=== PATIENT | male | born 1950 | race Caucasian/White ===

== ENCOUNTER 2023-10-19 09:57 | Emergency (ER) | payer MEDICARE, SELFPAY ==
[2023-10-19 10:10] VITALS: BP 168/83; PULSE 100; RESP 20; TEMP 36.9; O2SAT 97; BMI 28.0
--- NOTE | 2023-10-19 10:42 | EXP.UTC ---
Discharge Plan Disposition Patient Disposition: Home, Self-Care Condition: Good Prescriptions Prescriptions: New methylprednisolone [Medrol (Jose Carlos)] 4 mg tablets,dose pack See Rx Instructions .Route .COMPLEX 6 Days Qty: 21 0RF Rx Instructions: taper pack; No Action aspirin 81 mg Tablet,Chewable 81 mg PO DAILY lisinopril 40 mg tablet 40 mg PO DAILY Patient Comments: TAKE 1 TABLET BY MOUTH DAILY Referrals Follow up/Referrals: Roland Conley [Primary Care Provider] - See instructions Activity Restrictions/Add. Instructions Additional Instructions/Restrictions: Over the counter benadryl may help with itching Oatmeal bathes may help with itching and drying of rash Start Medrol pack today Follow up with your Family Doctor if no improvement or any worsening of symptoms Clinical Impressions Clinical Impression: Rash and nonspecific skin eruption Instructions Patient Instructions: DI for Rash, Methylprednisolone Discharge ED Provider: Sierra Blanchard [facility] General Stated complaint: rash on arms and back Mode of Arrival: Ambulatory Source of Information: Patient Limitations: No Limitations Time Seen by Provider: 10/19/23 10:42 Description of Symptoms (Recalled from Triage Doc. by RN): PATIENT C/O RASH TO BILATERAL ARMS AND BACK. HE STATES THE RASH STARTED 2 DAYS AGO BUT GOT WORSE LAST NIGHT. PATIENT DENIES ITCHING OR PAIN. PATIENT REPORTS SPRAYING WEED KILLER APPROX 5 DAYS AGO HEENT Symptoms (Recalled from RN notes): No Resp Symptoms (Recalled from RN notes): No Skin Symptoms (Recalled from RN notes): Yes MS Symptoms (Recalled from RN notes): No Functional Status (Recalled from RN notes): WNL History of Present Illness Provider Complaint: Patient states that he noticed on Friday he started breaking out in rash on his arms and back States that he did recently spray some weed killer and the rash has continued to spread over the last couple of days Related Data Home Medications Medication Instructions Recorded Confirmed aspirin 81 mg chewable tablet 81 mg PO DAILY 10/19/23 10/19/23 lisinopril 40 mg tablet 40 mg PO DAILY 10/19/23 10/19/23 Previous Rx's Medication Instructions Recorded methylprednisolone 4 mg tablets in See Rx Instructions .Route 10/19/23 a dose pack (Medrol (Jose Carlos)) .COMPLEX 6 days #21 tabs Allergies Allergy/AdvReac Type Severity Reaction Status Date / Time No Known Allergies Allergy Verified 10/19/23 10:25 Worker's Comp Is this a Worker's Comp case?: No [facility] Disclaimer: The information contained in this section may have been updated after the patient was seen, as this information can be updated by other users. Medical History (Updated 10/19/23 @ 10:48 by Sierra Blanchard APRN) COPD (chronic obstructive pulmonary disease) History of heart attack Hypertension Social History Smoking Status: Unknown if ever smoked alcohol intake: never current occupational status: retired Travel in the last 8 weeks: None ROS Obtained: Yes All systems reviewed & no additional complaints except as documented and Yes Systems reviewed as appropriate & no additional complaints except as documented Constitutional Constitutional: Reports system reviewed and no additional complaints, except as documented and Reports as per HPI ENT Ears, Nose, Mouth, and Throat: Reports system reviewed and no additional complaints, except as documented and Reports as per HPI Cardiovascular Cardiovascular: Reports system reviewed and no additional complaints, except as documented and Reports as per HPI Respiratory Respiratory: Reports system reviewed and no additional complaints, except as documented and Reports as per HPI Integumentary/Breasts Skin/Breast: Reports system reviewed and no additional complaints, except as documented, Reports as per HPI and Reports rash Physical Exam General General appearance: alert and in no apparent distress ENT ENT exam: Present mucous membranes moist Respiratory Respiratory exam: Present normal lung sounds bilaterally; Absent respiratory distress or wheezes Cardiovascular Cardiovascular exam: Present regular rate, normal rhythm and normal heart sounds Neurological Exam Neurological exam: Present alert, oriented X3 and normal gait Skin Skin exam: Present rash (red raised rash noted on bilateral arms, a few areas on chest and on his back) Medical Decision Making Rc Inquiry Pt receiving controlled substance: No Rc was queried for this patient: No Vital Signs: 10/19/23 10:10 Temperature 98.5 F Temperature Source Oral Pulse Rate [Left Brachial] 100 H Respiratory Rate 20 Blood Pressure [Left Arm] 168/83 H Blood Pressure Mean [Left Arm] 111 Blood Pressure Source [Left Arm] Automatic Cuff Blood Pressure Position [Left Arm] Sitting 02 Sat by Pulse Oximetry 97 Oxygen Delivery Method Room Air Medical Decision Narrative: Patient initially denied itching with rash however ale observed scratching arms and went brought to his attention he advised he didnt realize he was doing that
[2023-10-19 10:50] VITALS: BP 168/83; PULSE 100; RESP 20; TEMP 36.9; O2SAT 97
== END 2023-10-19 10:59 | disposition home or self-care (01) ==
PROVIDERS: Emergency Provider Nurse Practitioner; PCP Family Medicine
DX: T60.3X1A Toxic effect of herbicides and fungicides, accidental (unintentional), initial encounter (principal); R21 Rash and other nonspecific skin eruption; J44.9 Chronic obstructive pulmonary disease, unspecified; I10 Essential (primary) hypertension; I25.2 Old myocardial infarction
CPT/HCPCS: 99204; 99212; G0463

== ENCOUNTER 2023-12-31 10:10 | Outpatient (CLI) | payer MEDICARE, SELFPAY ==
--- NOTE | 2023-12-31 | CA_ITS ---
APPROVED REPORT Exam: Pharmacologic Technologist: Kate Nunez, Ht: 6 ft 0 in Wt: 204 lbs BSA: 2.15 m2 HR: 51 bpm BP: 145/77 mmHg Rhythm: Sinus bradycardia Medical History Medications: Aspirin,,,,, XaRELTO,,,,, BisOPROLOL Fumarate,,,,, Furosemide,,,,, Cardiac Risk Factors: HTN Stress Test Details Test: LEXISCAN HR Resting HR: 49 bpm Max Heart Rate (APMHR): 147 bpm Max HR Achieved: 61 bpm Target HR (85% APMHR): 125 bpm % of APMHR: 42 Recovery HR: 54 bpm BP Resting BP: 145.0/77.0 mmHg Max BP: 145.0/77.0 mmHg Recovery BP: 143.0/58.0 mmHg ECG Resting ECG: sinus bradycardia Stress ECG: No significant ST changes Arrhythmia: PACs, PVCs Clinical Exercise duration: 06:35 min Highest Stage Achieved: Stress ECG Conclusion During lexiscan pt experinced SOA and head discomfort. No CP noted. Occasional PAC, PVC. No significant ST changes. Conclusion: Unremarkable lexiscan stress. Myoview images reported separately. Test Summary REST . . . . . . . Sitting REST 03:33 . . 49 . 145/ 77 . . Stage 1 01:00 . . 53 . . . . Stage 2 01:00 . . 57 . . . . Stage 3 01:00 . . 55 . 130/ 62 . . Stage 4 01:00 . . 54 . 137/ 63 . . Stage 4 02:00 . . 56 . 137/ 63 . . Stage 4 03:00 . . 53 . 143/ 58 . . Stage 4 03:35 . . 51 . 143/ 58 . Stop exercise at 06:35 RECOVERY 01:00 . . 55 . . . . RECOVERY 01:40 . . 56 . 136/ 53 . . Electronically signed by : Yadira Davis MD 01/01/2024 12:32:50
--- NOTE | 2023-12-31 10:15 | CA_ITS ---
APPROVED REPORT EXAM: Comprehensive 2D, Doppler, and color-flow Echocardiogram [employer]man: Sharee Valadez RVT Ht: 6 ft 0 in Wt: 204lbs BSA: 2.15 BP: 116/59 mmHg Indications: CP,SOA,EX SMOKER,COPD 2D Dimensions IVSd 1.09 cm M: 0.6-1.2 LVEF (Visual) 54.80 % PWd 0.91 cm M: 0.6 - 1.2 LA Volume 79.30 mL LVDd 5.14 cm M: 4.2 - 5.9 LA Volume Index 36.88 mL/m2 (M/F) 16-34 LVDs 3.67 cm M: 2.5 - 4.0 M-Mode Dimensions RVDd 2.80 cm (0.9-2.6) LA Diam 4.79 cm (1.9-4.0) LVDd 5.47 cm (3.5-5.7) LVDs 4.03 cm (3.5-5.7) IVSd 0.85 cm (0.6-1.1) PWd 0.68 cm (0.6-1.1) EF (Teich) 51.00% FS 26.30% EDV (Teich) 145.60 mL TAPSE 1.61 (<1.7) ESV (Teich) 71.30 mL LV Diastology E Decel Time 150 (160-240 msec) E/A Ratio 1.7 Aortic Valve AIYANA Index 1.11 cm2/m2 AoV Peak Prakash. 126.0 (50-130 cm/s) AO Peak GR. 6.30 mmHg AO Mean GR. 3.50 (<5 mmHg) AO VTI 29.4 (18-25 cm) AYIANA (VTI) 2.45 (2.5-4.5 cm2) Mitral Valve MV E Max Prakash. 92.0 (40-130 cm/s) MV A Velocity 54.0 (40-130 cm/s) E/A Ratio 1.70 MV PHT 44.0 ms Pulmonary Valve PV Peak Velocity 66.0 (50-150 cm/s) Tricuspid Valve TR P. Velocity 301.00 cm/s RAP Estimate 10.00 mmHg RVSP 46.20 mmHg Left Ventricle The left ventricle is normal size. The left ventricular systolic function is mildly hypokinetic. There is normal left ventricular wall thickness. There is moderate hypokinesis of the inferior and inferoseptal LV henderson. Grade 1 diastolic dysfunction is present. LVEF is 45%. Right Ventricle Right ventricle is mildly dilated. The right ventricular systolic function is normal. Atria The left atrium size is normal. The right atrium size is normal. There is no Doppler evidence of interatrial shunt. Aortic Valve The aortic valve is mildly thickened. There is no aortic valvular stenosis. Trace aortic regurgitation. Mitral Valve The mitral valve leaflets are mildly thickened. No evidence of mitral valve stenosis. Mild mitral regurgitation. Tricuspid Valve The tricuspid valve leaflets are thin and pliable. Mild tricuspid regurgitation. RVSP is 25-30 mmHg. Pulmonic Valve The pulmonary valve is normal in structure. Trace pulmonic regurgitation. Great Vessels The aortic root is normal in size. The ascending aorta is not well-visualized. IVC is normal in size and collapses >50% with inspiration. Pericardium There is no pericardial effusion. Other Information Study Quality: Fair Conclusion Mildly reduced LV systolic function (LVEF 45%). Moderate hypokinesis of the inferior and inferoseptal LV henderson. Mild RV dilation. Mild MR, mild TR. Electronically signed by : Yadira Davis MD 01/04/2024 16:50:41
--- NOTE | 2023-12-31 10:15 | US_ITS ---
FINAL REPORT CLINICAL HISTORY: CAD, >50year smoker, Claudication COMPARISON: None FINDINGS: LOWER EXTREMITY SEGMENTAL PRESSURE MEASUREMENTS FINDINGS: Pressure indices are as follows: RIGHT LOWER EXTREMITY: Thigh: 1.07 Calf: 1.09 Ankle, posterior tibial artery: 1.00 Ankle, dorsalis pedis: 1.14 Toe: 0.63 HANNA: 1.14 Comments: Normal LEFT LOWER EXTREMITY: Thigh: 0.64 Calf: 0.57 Ankle, posterior tibial artery: 0.54 Ankle, dorsalis pedis: 0.59 Toe: 0.44 HANNA: 0.59 Comments: Diffusely diminished pressure indices IMPRESSION: No evidence of PVD on the right. Diffusely diminished pressure indices on the left suggesting iliac or common femoral disease. Consider CTA. Reviewed, Interpreted and Dictated by Vidhya Marcano MD Transcribed by Jackelin Dorsey Authenticated and . [facility]
--- NOTE | 2023-12-31 11:24 | NM_ITS ---
APPROVED REPORT Exam: Nuclear Stress Test Indication: SOB, Fatigue, HTN, Tobacco use, Family history, CAD, Hx of [place] Patient Location: Outpatient Stress Tech: Kate DEL ANGEL Tech:Natalie Sands, ARRT, RT (R)(N) Ht: 6 ft 0 in Wt: 204 lbs HR: 49 bpm BP: 145/77 mmHg BSA: 2.15 m2 Rhythm: NSR TID: 1.07 History: SOB, Fatigue, HTN, Tobacco use, Family history, CAD, Hx of [place] Procedure: Patient received 0.4 mg of intravenous Lexiscan, resting heart rate 49 bpm, resting blood pressure 145/77 mmHg, with Lexiscan maximum heart rate achieved was 61 bpm which is % of the maximum predicted heart rate and blood pressure was 145/77 mmHg. With Lexiscan, patient denied any complaint of chest pain. Cardiac Stress and Resting SPECT Images: Cardiac Stress and Resting SPECT images were obtained using technetium 99m Myoview 31.4 mCi stress and 10.98 mCi at rest. Resting and stress imaging in supine and prone positions demonstrate a large sized, moderate, fixed perfusion defect in the inferior LV wall. Gated imaging demonstrates mild reduction in global LV systolic function. There is moderate hypokinesis of the basal inferior LV wall. LVEF is calculated at 49%. Conclusion: Large sized, moderate, fixed perfusion defect in the inferior LV wall. Gated imaging demonstrates mild reduction in global LV systolic function. There is moderate hypokinesis of the basal inferior LV wall. LVEF is calculated at 49%. The LVEF may be inaccurate in the setting of frequent ectopy during image acquisition. Correlation with recent or new TTE is recommended. Electronically signed by : Yadira Davis MD 01/01/2024 12:34:26
[2023-12-31] MEDS: REGADENOSON 0.4MG/5ML SYRINGE 0.4 MG IV (13:25)
[2023-12-31] MEDS: SODIUM CHLORIDE 0.9% 10ML SYR (RAD ONLY) 10 ML IV ×2 (13:26)
[2023-12-31] MEDS: ISOTOPE MYOVIEW (PER STUDY) 1 DOSE IV (13:26)
== END 2023-12-31 23:59 | disposition home or self-care (01) ==
LOC: RT 10:11
PROVIDERS: PCP Family Medicine; Visit Provider Internal Medicine
DX: I25.10 Atherosclerotic heart disease of native coronary artery without angina pectoris (principal); I11.9 Hypertensive heart disease without heart failure; I73.9 Peripheral vascular disease, unspecified; R06.00 Dyspnea, unspecified; I48.0 Paroxysmal atrial fibrillation; R00.1 Bradycardia, unspecified; Z95.5 Presence of coronary angioplasty implant and graft
CPT/HCPCS: 78452; 93017; 93018; 93306; 93923; A9502; J2785

== ENCOUNTER 2024-01-03 10:28 | Outpatient (CLI) | payer MEDICARE, SELFPAY ==
[2024-01-03 10:59] LABS: Basophils % 0.6 % (0.1-2.0); Eosinophils # 0.2 K/mm3 (0.0-0.4); Lymphocytes # 0.9 K/mm3 (0.7-4.5); Lymphocytes % 16.8 % (10-50); Mean Corpuscular HGB Conc 32.4 g/dL (31.8-35.4); Mean Corpuscular Hemoglobin 30.7 pg (27.0-31.2); Mean Corpuscular Volume 94.6 fl (80-94); Monocytes # 0.4 K/mm3 (0.1-1.0); Monocytes % 7.1 % (1.7-9.3); Neutrophils # 3.7 K/mm3 (1.8-7.8); Neutrophils % 71.5 % (37.0-80.0); Platelet Count 171 K/mm3 (142-424); Red Blood Count 4.23 M/mm3 (4.60-6.20); Red Cell Distribution Width 14.8 % (11.5-17.5); White Blood Count 5.2 K/mm3 (4.8-10.8)
[2024-01-05 12:24] LABS: Antiparietal Cell Antibody 2.3 Units (0.0-20.0)
[2024-01-05 13:14] LABS: Anti-Centromere B Antibodies <0.2 AI (0.0-0.9); Anti-DNA (DS) Ab Qn 1 IU/mL (0-9); Anti-Jo-1 <0.2 AI (0.0-0.9); Anti-Smith Antibody <0.2 AI (0.0-0.9); Antichromatin Antibodies <0.2 AI (0.0-0.9); Antiscleroderma-70 Antibodies <0.2 AI (0.0-0.9); RNP Antibodies <0.2 AI (0.0-0.9); Sjogren's Anti-SS-A 6.8 AI (0.0-0.9); Sjogren's Anti-SS-B 0.2 AI (0.0-0.9)
[2024-01-06 05:09] LABS: G6PD, Quantitative 252 (127-427); RBC, G6PD 4.22 x10E6/uL (4.14-5.80)
== END 2024-01-03 23:59 | disposition home or self-care (01) ==
PROVIDERS: PCP Family Medicine; Visit Provider Dermatology
DX: R21 Rash and other nonspecific skin eruption (principal)
CPT/HCPCS: 36415; 82955; 83516; 85025; 86225; 86235

== ENCOUNTER 2024-04-09 08:23 | Day surgery (SDC) | payer MEDICARE, SELFPAY ==
[2024-04-09] VITALS (12 sets, daily range): BP systolic 131–157; BP diastolic 71–98; PULSE 51–76; RESP 14–18; TEMP 36.6; O2SAT 94–100; BMI 27.6
--- NOTE | 2024-04-09 07:06 | IR_ITS ---
APPROVED REPORT Patient Location: Outpatient PROCEDURES Left heart catheterization Left ventriculogram Selective coronary angiogram INDICATION Angina pectoris, Coronary artery disease Informed consent was obtained prior to the procedure. COMPLICATIONS none Estimated Blood Loss: less than 10ml TECHNIQUE One percent lidocaine used to anesthetize the right anterior aspect of the wrist. The right radial artery was accessed via the Seldinger technique. A 6 English sheath was placed in the right radial artery. 2.5 mg of Verapamil, 800 mcg of nitroglycerin, 1mg Lidocaine and 5000 U Heparin were given through the arterial sheath. The papa catheter was also used to perform left heart catheterization, left ventriculogram and selective coronary angiogram. At the end of the procedure the sheath was removed good hemostasis was achieved using Traclet band, patient was transferred to the postop holding area in stable condition. ANGIOGRAPHIC RESULTS The left main artery Has a distal concentric 40 to 50% stenosis The left anterior descending artery Is proximal 60 and 70% stenoses. There is a large first diagonal artery which is equal in size to the LAD which has a proximal and mid vessel 70 and 80% stenosis The circumflex artery Is large and has a proximal calcified 50 and then 70% stenosis The right coronary artery Is dominant and has a mid vessel 50 and 60% stenosis and gives rise to a large posterior descending artery which has a proximal concentric 80 to 90% stenosis The CUELLAR ventriculogram reveals Normal 60% The left ventricular end-diastolic pressure 15 mmHg IMPRESSION Severe 4 vessel coronary artery disease as described above Normal ejection fraction Borderline LVEDP PLAN 1. Patient should be evaluated for coronary bypass surgery 2. Start high intensity statin 3. Standard therapy for ischemic heart disease 4. Continue aspirin 81 mg daily 5. Patient will be referred to [facility] Electronically signed by : Tyler Argueta MD 04/09/2024 14:59:39
--- NOTE | 2024-04-09 09:00 | SUR.PHASEII ---
stated she is not staying that to call her with results of procedure and d/c time
[2024-04-09 09:17] LABS: Basophils % 0.7 % (0.1-2.0); Eosinophils # 0.2 K/mm3 (0.0-0.4); Eosinophils % 3.4 % (0.1-12.0); Hematocrit 46.1 % (42.0-52.0); Hemoglobin 14.5 g/dL (14.1-18.0); Lymphocytes # 0.9 K/mm3 (0.7-4.5); Mean Corpuscular HGB Conc 31.6 g/dL (31.8-35.4); Mean Corpuscular Volume 95.1 fl (80-94); Mean Platelet Volume 8.5 fl (7.4-10.4); Monocytes # 0.4 K/mm3 (0.1-1.0); Neutrophils # 4.8 K/mm3 (1.8-7.8); Platelet Count 165 K/mm3 (142-424); Red Blood Count 4.85 M/mm3 (4.60-6.20); Red Cell Distribution Width 14.7 % (11.5-17.5); White Blood Count 6.3 K/mm3 (4.8-10.8)
[2024-04-09 09:35] LABS: Anion Gap 6.5 mEq/L (5-15); Blood Urea Nitrogen 17 mg/dl (9-20); Calcium 9.1 mg/dl (8.4-10.2); Carbon Dioxide 31 mmol/L (22.0-30.0); Chloride 104 mmol/L (98-107); Creatinine Clearance Estimated 77 mL/min (50-200); Estimated Glomerular Filt Rate 65 ml/min (>60); GFR (African American) 79 ML/MIN (>60); Glucose 97 mg/dl (74-100); Potassium 4.5 mmoL/L (3.5-5.1); Sodium 137 mmol/L (136-145)
[2024-04-09] MEDS: diphenhydrAMINE 50MG/ML VIAL 50 MG IV (10:49)
[2024-04-09] MEDS: LIDOCAINE 1% 10ML MDV 20 ML IJ (10:49)
[2024-04-09] MEDS: MIDAZOLAM HCL 1MG/1ML 5ML VIAL 1 MG IV (10:50)
[2024-04-09] MEDS: FENTANYL 100MCG/2ML VIAL 50 MCG IV (10:50)
[2024-04-09] MEDS: HEPARIN 1,000 UNITS/ML 10ML VIAL (CATH LAB) 10000 UNIT IV (10:50)
[2024-04-09] MEDS: NITROGLYCERIN 800MCG/8ML SYR (CATH LAB) 800 MCG IA (10:51)
[2024-04-09] MEDS: 0.9 % SODIUM CHLORIDE 500 ML 25 ML IV (10:51)
[2024-04-09] MEDS: HEPARIN 1,000 UNITS/500ML NS (CATH LAB) 3000 UNIT IV (10:51)
--- NOTE | 2024-04-09 11:45 | SUR.PHASEII ---
Called pt to notify her of results and that her will be referred to dr romo for CABG
--- NOTE | 2024-04-09 11:50 | SUR.PHASEII ---
Faxed referral information to Dr blas office, fax received
[2024-04-09] MEDS: IOPAMIDOL-370 (76%);100ML BOTTLE 70 ML IV (15:17)
== END 2024-04-09 14:40 | disposition home or self-care (01) ==
PROVIDERS: PCP Family Medicine; Visit Provider Internal Medicine
DX: R93.1 Abnormal findings on diagnostic imaging of heart and coronary circulation; R06.09 Other forms of dyspnea; I25.118 Atherosclerotic heart disease of native coronary artery with other forms of angina pectoris; Z79.899 Other long term (current) drug therapy
CPT/HCPCS: 80048; 85025; 93458; 99152; 99153; C1725; C1769; J1200; J1644; J2250; J3010; Q9967

== ENCOUNTER 2024-07-21 14:43 | Outpatient (CLI) | payer MEDICARE, SELFPAY ==
[2024-07-21 15:29] LABS: Basophils # 0.1 K/mm3 (0-0.2); Basophils % 0.9 % (0.1-2.0); Eosinophils # 0.2 K/mm3 (0.0-0.4); Hematocrit 39.9 % (42.0-52.0); Hemoglobin 13.1 g/dL (14.1-18.0); Lymphocytes # 0.9 K/mm3 (0.7-4.5); Lymphocytes % 15.1 % (10-50); Mean Corpuscular HGB Conc 32.8 g/dL (31.8-35.4); Mean Corpuscular Hemoglobin 28.4 pg (27.0-31.2); Mean Corpuscular Volume 86.4 fl (80-94); Mean Platelet Volume 11.2 fl (7.4-10.4); Monocytes # 0.6 K/mm3 (0.1-1.0); Monocytes % 9.9 % (1.7-9.3); Neutrophils % 69.8 % (37.0-80.0); Platelet Count 184 K/mm3 (142-424); Red Blood Count 4.62 M/mm3 (4.60-6.20); Red Cell Distribution Width 15.2 % (11.5-17.5); White Blood Count 5.8 K/mm3 (4.8-10.8)
[2024-07-21 15:43] LABS: Chloride 102 mmol/L (98-107); Potassium 4.5 mmoL/L (3.5-5.1); Sodium 137 mmol/L (136-145)
[2024-07-21 15:45] LABS: Bilirubin,Unconjugated 0.4 mg/dL (0.0-1.1); Blood Urea Nitrogen 11 mg/dl (9-20); Estimated Glomerular Filt Rate 94 ml/min (>60); GFR (African American) 114 ML/MIN (>60)
[2024-07-21 15:46] LABS: Alanine Aminotransferase 22 U/L (12-78); Alkaline Phosphatase 102 U/L (38-126); Anion Gap 10.5 mEq/L (5-15); Aspartate Amino Transferase 30 U/L (17-59); Bilirubin,Indirect 0.5 mg/dL (0.0-0.9); Bilirubin,Total 0.5 mg/dl (0.2-1.3); Calcium 9.2 mg/dl (8.4-10.2); Carbon Dioxide 29 mmol/L (22.0-30.0); Chol/HDL Ratio 2.6 (1-3.5); Cholesterol 100 mg/dl (140-200); Glucose 84 mg/dl (74-100); HDL Cholesterol 39 mg/dl (40-60); Magnesium 1.9 mg/dl (1.6-2.3); Triglycerides 74 mg/dl (30-150); VLDL Cholesterol 15 mg/dL (0-40)
[2024-07-21 15:57] LABS: Direct LDL Cholesterol 44.72 mg/dL (100-129)
[2024-07-21 16:01] LABS: Free T4 (Free Thyroxine) 1.18 ng/dl (0.78-2.19)
[2024-07-21 16:17] LABS: Thyroid Stimulating Hormone 0.94 uIU/mL (0.465-4.68)
== END 2024-07-21 23:59 | disposition home or self-care (01) ==
LOC: LAB 14:44
PROVIDERS: PCP Family Medicine; Visit Provider Internal Medicine
DX: Z95.1 Presence of aortocoronary bypass graft (principal); I50.20 Unspecified systolic (congestive) heart failure; I48.0 Paroxysmal atrial fibrillation; I10 Essential (primary) hypertension; E78.2 Mixed hyperlipidemia; Z72.0 Tobacco use; I25.10 Atherosclerotic heart disease of native coronary artery without angina pectoris
CPT/HCPCS: 36415; 80048; 80061; 80076; 83735; 84439; 84443; 85025

== ENCOUNTER 2024-07-28 12:33 | Outpatient (CLI) | payer MEDICARE, SELFPAY ==
--- NOTE | 2024-07-28 12:39 | CA_ITS ---
APPROVED REPORT EXAM: Comprehensive 2D, Doppler, and color-flow Echocardiogram Presser First: Sharee Valadez RVT Ht: 6 ft 0 in Wt: 204lbs BSA: 2.15 BP: 184/73 mmHg Indications: CHF,CAD,CABG,COPD,HTN,HLD,CP,A-FIB,EF OF 45% ON 12/31/23 2D Dimensions LA Volume 63.70 mL LA Volume Index 29.63 mL/m2 (M/F) 16-34 M-Mode Dimensions RVDd 2.46 cm (0.9-2.6) LA Diam 4.80 cm (1.9-4.0) LVDd 5.22 cm (3.5-5.7) LVDs 4.11 cm (3.5-5.7) IVSd 1.03 cm (0.6-1.1) PWd 0.49 cm (0.6-1.1) EF (Teich) 42.80% FS 21.30% EDV (Teich) 130.70 mL TAPSE 1.28 (<1.7) ESV (Teich) 74.70 mL LV Diastology E Decel Time 150 (160-240 msec) E/A Ratio 3.6 Aortic Valve AIYANA Index 1.02 cm2/m2 AoV Peak Prakash. 126.0 (50-130 cm/s) AO Peak GR. 6.30 mmHg AO Mean GR. 3.70 (<5 mmHg) AO VTI 23.8 (18-25 cm) AIYANA (VTI) 2.24 (2.5-4.5 cm2) Mitral Valve MV E Max Prakash. 86.0 (40-130 cm/s) MV A Velocity 24.0 (40-130 cm/s) E/A Ratio 3.57 MV PHT 44.0 ms Pulmonary Valve PV Peak Velocity 63.0 (50-150 cm/s) Tricuspid Valve TR P. Velocity 115.00 cm/s RAP Estimate 10.00 mmHg RVSP 15.30 mmHg Left Ventricle The left ventricle is normal size. The left ventricular systolic function is low normal. There is increased LV wall thickness. There is borderline global hypokinesis present. Diastolic function is normal. LVEF is 50%. Right Ventricle The right ventricle is mildly dilated. The right ventricular systolic function is normal. Atria The left atrium size is normal. The right atrium size is normal. There is no Doppler evidence of interatrial shunt. Aortic Valve The aortic valve is mildly thickened. There is no aortic valvular stenosis. Trace aortic regurgitation. Mitral Valve The mitral valve is normal in structure. No evidence of mitral valve stenosis. Mild mitral regurgitation. Tricuspid Valve Tricuspid valve is grossly normal in structure and function. Trace tricuspid regurgitation. There is insufficient TR jet to estimate RVSP. Pulmonic Valve The pulmonary valve is normal in structure. Trace pulmonic regurgitation. Great Vessels The aortic root is normal in size. The ascending aorta is not well-visualized. IVC is normal in size and collapses >50% with inspiration. Pericardium There is no pericardial effusion. Conclusion Low normal LV systolic function (LVEF 50%). Mild MR. Compared to prior study from 12/31/2023, the LVEF is slightly improved (from 45% to 50%) and is now in the low-normal range. Electronically signed by : Yadira Davis MD 08/05/2024 23:45:15
== END 2024-07-28 23:59 | disposition home or self-care (01) ==
LOC: RT 12:34
PROVIDERS: PCP Family Medicine; Visit Provider Internal Medicine
DX: I34.0 Nonrheumatic mitral (valve) insufficiency (principal); I50.20 Unspecified systolic (congestive) heart failure; Z95.1 Presence of aortocoronary bypass graft
CPT/HCPCS: 93306

== ENCOUNTER 2024-09-27 12:23 | Outpatient (CLI) | payer MEDICARE, SELFPAY ==
--- NOTE | 2024-09-27 12:27 | CT_ITS ---
FINAL REPORT TECHNIQUE: Post contrast axial imaging of the aorta and bilateral lower extremity was obtained and reviewed.This study was performed with techniques to keep radiation doses as low as reasonably achievable (ALARA). Individualized dose reduction techniques using automated exposure control or adjustment of mA and/or kV according to the patient''s size were employed. CLINICAL HISTORY: SEE BILATERAL LOWER EXTREMITIES. BILATERAL LEG AND FEET NUMBNESS. HEART BYPASS [id number] AGO. COMPARISON: None FINDINGS: There is no evidence of abdominal aortic aneurysm or dissection. There are aortic calcifications. The mesenteric vessels are patent. There is calcification at the origin of the inferior mesenteric artery. Stenosis is not excluded. There is calcification at the origin of the renal arteries bilaterally. There is likely at least moderate stenosis bilaterally. There is mild stenosis of the bilateral common iliac arteries. The bilateral internal and external iliac arteries are patent without significant stenosis. Right: The right common femoral artery is patent. There is atherosclerotic disease causing mild stenosis. The right superficial femoral artery and profunda are patent. There are areas of mild to moderate stenosis of the right superficial femoral artery without occlusion. There is prominent calcification of the right popliteal artery. There is a three-vessel runoff to the calf. Flow is not well-demonstrated in the distal calf. No convincing flow is seen at the ankle. The right common femoral artery, deep femoral artery and superficial femoral artery are all patent, without stenosis. There is no stenosis of the popliteal artery. The anterior and posterior tibial and peroneal arteries are patent to the lower leg. The anterior and posterior tibial arteries are patent to the foot. Left: There is atherosclerotic disease of the left common femoral artery with mild stenosis. The proximal superficial femoral artery and profunda are patent. There is atherosclerotic disease throughout the course of the superficial femoral artery. The distal left superficial femoral artery is occluded at the adductor hiatus. This reconstitutes posterior to the knee. There is a three-vessel runoff in the proximal most aspect of the calf. The peroneal and anterior tibial arteries are not well-seen after the proximal third. The posterior tibial artery is seen only to the mid calf. Review of the remaining abdomen and pelvis demonstrates no evidence of mass or adenopathy. There is no fluid collection or acute inflammatory process. IMPRESSION: 1. No evidence of aortic aneurysm or dissection. 2. Bilateral renal artery stenosis. 3. Bilateral lower extremity atherosclerotic disease as detailed above. 4. Occlusion of the left superficial femoral artery at the level of the adductor hiatus with reconstitution posterior to the knee as above. Authenticated and ERN
[2024-09-27 12:56] LABS: Blood Urea Nitrogen 13 mg/dl (9-20); Estimated Glomerular Filt Rate 82 ml/min (>60); GFR (African American) 100 ML/MIN (>60)
[2024-09-27] MEDS: IOPAMIDOL-370 (76%);100ML BOTTLE 100 ML IV (13:28)
[2024-09-27] MEDS: 0.9 % SODIUM CHLORIDE 50 ML VIAL IV (13:28)
[2024-09-27] MEDS: SODIUM CHLORIDE 0.9% 10ML SYR (RAD ONLY) 10 ML IV (13:28)
== END 2024-09-27 23:59 | disposition home or self-care (01) ==
LOC: RAD 12:24
PROVIDERS: PCP Family Medicine; Visit Provider Internal Medicine
DX: I25.10 Atherosclerotic heart disease of native coronary artery without angina pectoris (principal); Z95.1 Presence of aortocoronary bypass graft; I50.20 Unspecified systolic (congestive) heart failure; R68.89 Other general symptoms and signs; R00.1 Bradycardia, unspecified; I73.9 Peripheral vascular disease, unspecified; I48.0 Paroxysmal atrial fibrillation; E78.2 Mixed hyperlipidemia; Z95.5 Presence of coronary angioplasty implant and graft; Z72.0 Tobacco use
CPT/HCPCS: 36415; 75635; 82565; 84520; Q9967

== ENCOUNTER 2024-10-19 12:15 | Outpatient (CLI) | payer MEDICARE, SELFPAY ==
--- NOTE | 2024-10-19 | CA_ITS ---
APPROVED REPORT Exam: Pharmacologic Technologist: Sruthi Allen Ht: 6 ft 0 in Wt: 204 lbs BSA: 2.15 m2 HR: 74 bpm BP: 137/77 mmHg Stress Test Details Test: Lexiscan HR Resting HR: 74 bpm Max Heart Rate (APMHR): 146 bpm Max HR Achieved: 75 bpm Target HR (85% APMHR): 124 bpm % of APMHR: 51 Recovery HR: 74 bpm BP Resting BP: 137.0/77.0 mmHg Max BP: 137.0/77.0 mmHg Recovery BP: 135.0/74.0 mmHg ECG Resting ECG: Atrial flutter Stress ECG Conclusion Symptoms: Dyspnea Arrhythmias/Ectopy: Atrial flutter ST-T Changes: Less than 1 mm Conclusion: EKG unremarkable due to Lexiscan infusion. Electronically signed by : Yadira Davis MD 10/19/2024 15:10:58
--- NOTE | 2024-10-19 12:30 | NM_ITS ---
APPROVED REPORT Exam: Nuclear Stress Test Indication: Chest pain, SOB, HTN, High cholesterol, Tobacco use, Family history, CAD, CABG Patient Location: Outpatient Stress Tech: Sruthi Allen [place] Tech:Natalie Sands, ARRT, RT (R)(N) Ht: 6 ft 0 in Wt: 200 lbs HR: 73 bpm BP: 137/77 mmHg BSA: 2.13 m2 TID: 1.18 History: Chest pain, SOB, HTN, High cholesterol, Tobacco use, Family history, CAD, CABG Procedure: Patient received 0.4 mg of intravenous Lexiscan, resting heart rate 73 bpm, resting blood pressure 137/77 mmHg, with Lexiscan maximum heart rate achieved was 77 bpm which is % of the maximum predicted heart rate and blood pressure was 135/74 mmHg. With Lexiscan, patient denied any complaint of chest pain. Cardiac Stress and Resting SPECT Images: Cardiac Stress and Resting SPECT images were obtained using technetium 99m Myoview 32.9 mCi stress and 10.73 mCi at rest. Resting and stress imaging in supine and prone positions demonstrate a large sized, severe, predominantly fixed perfusion defect in the inferior and inferoseptal LV henderson. There is minimal reversibility towards the distal inferior and inferoapical LV henderson. Gated imaging demonstrates severe reduction in global LV systolic function. There is akinesis of the basal to mid inferior LV henderson. LVEF is calculated at 28%. Conclusion: Large sized, severe, predominantly fixed perfusion defect in the inferior and inferoseptal LV henderson. There is minimal reversibility towards the distal inferior and inferoapical LV henderson. Findings are suggestive of partial reversible ischemia. Gated imaging demonstrates severe reduction in global LV systolic function. There is akinesis of the basal to mid inferior LV henderson. LVEF is calculated at 28%. Electronically signed by : Yadira Davis MD 10/19/2024 15:07:52
[2024-10-19] MEDS: SODIUM CHLORIDE 0.9% 10ML SYR (RAD ONLY) 10 ML IV ×2 (13:23)
[2024-10-19] MEDS: ISOTOPE MYOVIEW (PER STUDY) 1 DOSE IV (13:23)
[2024-10-19] MEDS: REGADENOSON 0.4MG/5ML SYRINGE 0.4 MG IV (13:23)
== END 2024-10-19 23:59 | disposition home or self-care (01) ==
LOC: RAD 12:15
PROVIDERS: PCP Family Medicine; Visit Provider Nurse Practitioner Family
DX: I25.119 Atherosclerotic heart disease of native coronary artery with unspecified angina pectoris (principal)
CPT/HCPCS: 78452; 93017; 93018; A9502; J2785

== ENCOUNTER 2024-10-27 08:45 | Day surgery (SDC) | payer MEDICARE, SELFPAY ==
[2024-10-27] VITALS (13 sets, daily range): BP systolic 143–168; BP diastolic 78–95; PULSE 60–78; RESP 17–19; O2SAT 93–98; BMI 27.8
--- NOTE | 2024-10-27 07:03 | IR_ITS ---
APPROVED REPORT Patient Location: Outpatient PROCEDURES Left heart catheterization Left ventriculogram Selective coronary angiogram Left internal mammary angiography Selective engagement of the saphenous vein graft to the circumflex artery Drug-eluting stent deployment to the proximal left main artery extending into the proximal circumflex artery Bilateral selective renal angiography Catheter placement in the abdominal aorta Abdominal aortography Repositioning of the catheter in the abdominal aorta Bilateral iliofemoral runoff INDICATION Coronary artery disease, Angina pectoris, History of coronary artery bypass surgery, Renal artery stenosis by CAT scan angiography, Abnormal HANNA, Peripheral artery disease, [place] claudication class III Informed consent was obtained prior to the procedure. COMPLICATIONS NONE Estimated Blood Loss: LESS THAN 10 ML TECHNIQUE One percent lidocaine used to anesthetize the right groin. The right femoral artery was accessed via the Seldinger technique and a 5 [place] sheath was placed in the right femoral artery. A JL 4, JR4 catheter were used to perform left heart catheterization, left ventriculogram selective coronary angiography as well as selective engagement of the solitary vein graft and the left internal mammary artery. The JR4 catheter was used to perform bilateral selective renal angiography. At the end of the diagnostic angiogram therapeutic heparin was administered giving a therapeutic ACT and the 5 [place] sheath was exchanged for a 6 [place] sheath. A 6 [place] JL 4 guide catheter was placed in left main artery followed by Choice PT extra-support wire placed into the LAD. A 3.5 x 22 mm Nick frontier stent was placed in the left main artery extending into the proximal LAD and deployed at 20 kelle. The 3.5 x 8 mm balloon was deployed at 26 kelle in the ostial segment of the LAD extending back into the left main artery to post dilate. ROOSEVELT-3 flow was present before and after the procedure. At the end the procedure the pigtail catheter was placed in the abdominal aorta and aortography was performed. The catheter was then repositioned and bilateral iliofemoral runoff was performed. At the end procedure the apparatus was removed the groin is reprepped closure change sheath was removed and hemostasis was achieved using Perclose device and patient was transferred to the postop putting in stable addition ANGIOGRAPHIC RESULTS The left main artery Has a distal 50% stenosis The left anterior descending artery Has an ostial concentric 60% stenosis with proximal 30% calcified stenoses. A small to medium sized first diagonal artery has proximal tandem 60% stenoses. The diagonal artery is small to medium and has proximal tandem 60% stenosis. A bypass graft is identified in the distal diagonal artery which produces scant, if any, competitive flow The circumflex artery Has an ostial 60% stenosis followed by proximal 70% concentric stenosis. Competitive flow is present from the saphenous vein graft The right coronary artery Is dominant and has stent in the proximal to mid segment which is widely patent with minimal in-stent restenosis. There is a 30% concentric distal transitioning stenosis. The posterior lateral branch has proximal 50% stenosis of the PDA has tandem 30-40 and 50% stenosis The CUELLAR ventriculogram reveals Dilated and reduced at 35% The left ventricular end-diastolic pressure 10 mmHg PETERS graft is distally occluded Saphenous vein graft to circumflex artery patent Right renal artery has an ostial 20 to 30% stenosis Left renal artery has an ostial 20% stenosis Infrarenal abdominal aorta is normal Bilateral common internal and external iliac arteries are patent Bilateral common femoral arteries are patent Bilateral profunda femoris arteries are patent Right superficial femoral artery has diffuse mild to moderate atheromatous plaque with 40% stenoses in Tyree's canal. The popliteal artery is patent and there appears to be two-vessel runoff below the knee on the right side Left superficial femoral artery has proximal 40% stenosis with 70% stenosis in Tyree's canal and then becomes occluded. It reconstitutes 4 to 5 cm distally at the popliteal level and continues with at least one-vessel runoff below the knee IMPRESSION Occluded PETERS graft as described above Successful stenting of the left main artery extending the proximal LAD severe disease reduced to 0% with 1 drug-eluting stent Left ventricular dysfunction as described above Normal left ventricular end-diastolic pressure Mild bilateral renal artery stenosis Occluded left SFA/popliteal artery at Tyree's canal which reconstitutes at the pregeniculate level PLAN 1. Dual antiplatelet therapy 2. Cardiac rehabilitation 3. Avoidance of tobacco products 4. Echocardiogram to determine if ejection fraction is 35% or less. In that case GDMT should be implemented and ejection fraction reevaluated in 90 days to determine if AICD placement is appropriate 5. Patient will be brought back to the [facility] in 2 to 3 weeks and undergo percutaneous revascularization with intravascular lithotripsy to the calcified occluded left SFA popliteal artery 6. LDL less than 55 achieved with high intensity statin Electronically signed by : Tyler Argueta MD 10/27/2024 11:04:19
[2024-10-27 09:29] LABS: Basophils % 0.6 % (0.1-2.0); Eosinophils # 0.2 Kmm3 (0.0-0.4); Eosinophils % 3.9 % (0.1-12.0); Hematocrit 38.7 % (42.0-52.0); Hemoglobin 12.9 g/dL (14.1-18.0); Lymphocytes # 0.7 K/mm3 (0.7-4.5); Lymphocytes % 14.3 % (10-50); Mean Corpuscular HGB Conc 33.3 g/dL (31.8-35.4); Mean Corpuscular Hemoglobin 29.3 pg (27.0-31.2); Mean Platelet Volume 11.2 fl (7.4-10.4); Monocytes # 0.4 K/mm3 (0.1-1.0); Monocytes % 8.3 % (1.7-9.3); Neutrophils # 3.8 K/mm3 (1.8-7.8); Neutrophils % 72.7 % (37.0-80.0); Nucleated Red Blood Cells # 0 10^3/uL; Nucleated Red Blood Cells % 0 %; Platelet Count 149 K/mm3 (142-424); Red Cell Distribution Width 14.5 % (11.5-17.5); Red Cell Distribution Width-SD 46.7 fL; White Blood Count 5.2 K/mm3 (4.8-10.8)
[2024-10-27 09:32] LABS: Anion Gap 9.9 mEq/L (5-15); Blood Urea Nitrogen 11 mg/dl (9-20); Calcium 8.7 mg/dl (8.4-10.2); Carbon Dioxide 25 mmol/L (22.0-30.0); Chloride 107 mmol/L (98-107); Creatinine Clearance Estimated 84 mL/min (50-200); Estimated Glomerular Filt Rate 94 ml/min (>60); GFR (African American) 114 ML/MIN (>60); Glucose 93 mg/dl (74-100); Potassium 3.9 mmoL/L (3.5-5.1); Sodium 138 mmol/L (136-145)
[2024-10-27] MEDS: HEPARIN 1,000 UNITS/500ML NS (CATH LAB) 3000 UNIT IV (09:58)
[2024-10-27] MEDS: LIDOCAINE 1% 10ML MDV 10 ML IJ (09:58)
[2024-10-27] MEDS: 0.9 % SODIUM CHLORIDE 500 ML 25 ML IV (09:58)
[2024-10-27] MEDS: diphenhydrAMINE 50MG/ML VIAL 50 MG IV (09:59)
[2024-10-27] MEDS: HEPARIN 1,000 UNITS/ML 10ML VIAL (CATH LAB) 5000 UNIT IV ×3 (10:21→11:05)
[2024-10-27] MEDS: FENTANYL 100MCG/2ML VIAL 50 MCG IV (10:38)
[2024-10-27] MEDS: MIDAZOLAM HCL 1MG/ML 5ML VIAL 1 MG IV (10:40)
[2024-10-27] MEDS: CLOPIDOGREL 300MG TABLET 600 MG PO (10:55)
[2024-10-27] MEDS: IOPAMIDOL-370 (76%);100ML BOTTLE 180 ML IV (12:29)
[2024-10-27] MEDS: IOHEXOL-240 100ML BOTTLE 130 ML IV (12:30)
[2024-10-27 12:36] LABS: CATHL Activated Clotting Time 263 SEC (74-125)
== END 2024-10-27 14:05 | disposition home or self-care (01) ==
PROVIDERS: PCP Family Medicine; Visit Provider Internal Medicine
DX: I25.118 Atherosclerotic heart disease of native coronary artery with other forms of angina pectoris (principal); I77.1 Stricture of artery; I10 Essential (primary) hypertension; Z95.1 Presence of aortocoronary bypass graft; I70.1 Atherosclerosis of renal artery; Z79.899 Other long term (current) drug therapy; Z88.8 Allergy status to other drugs, medicaments and biological substances; Z95.5 Presence of coronary angioplasty implant and graft; Z79.82 Long term (current) use of aspirin; Z79.01 Long term (current) use of anticoagulants; J44.9 Chronic obstructive pulmonary disease, unspecified; I48.0 Paroxysmal atrial fibrillation
CPT/HCPCS: 36252; 75625; 75716; 80048; 85025; 85347; 92928; 93459; 99152; 99153; C1725; C1760; C1769; C1874; C1894; C9600; J1200; J1644; J3010; Q9966; Q9967

== ENCOUNTER 2024-10-29 11:03 | Outpatient (CLI) | payer MEDICARE, SELFPAY ==
--- OUTSIDE RECORDS SUMMARY | 2024-10-29 11:06 | XMS_ITS | Continuity of Care Document ---
Author Organization [facility] Phone Care Team Providers Care Vice Chair Name Role Phone MELANI BAE Primary Attending MELANI BAE Admitting MELANI BAE Unavailable DEMETRIUS BAGLEY Primary Care ALLERGIES AND ADVERSE REACTIONS ALLERGIES AND ADVERSE REACTIONS Code System Allergy Substance Adverse Reaction Date Reaction (Severity) Comment Status Reported By Updated By No Known Allergies [id number] on August 19, 2024 3:43:24 PM [place] MEDICATIONS HOME MEDICATIONS Status RXNORM NDC Medication Dose Route Frequency Dates Comments Reported By Updated By Drug Treatment Unknown DISCHARGE MEDICATIONS Status RXNORM NDC Medication Dose Route Frequency Dates Comments Physician Updated By No Discharge Medication Info rmation Available INPATIENT MEDICATIONS Status RXNORM NDC Medication Dose Route Frequency Rat e Quantity Dates Comments Physician Updated By No Inpatient Medication Info rmation Available SOCIAL HISTORY SOCIAL HISTORY SNOMED-CT Social History Element Description Effective Dates Offered Cessation Comment UpdatedBy [id number] Smoking Status Unknown If Ever Smoked SOCIAL HISTORY - Gender Sex: Male SOCIAL HISTORY - Status : status i nformation is not available Intention in Next Year: intention information is not available SOCIAL HISTORY - Sexual Behavior Sexual Orientation Gender Identity SNOMED-CT Description SNO MED -CT Description Activity Level No of Partners Partner Type UpdatedBy Information is not available HEALTH CONCERNS Problems Concern Status Health Concern problem infor mation not available. Smoking Status Status Years Used Consumed packs p er day Health Concern smoking histo ry information not available. Family History Concern Status Health Concern family histor y information not available. ENCOUNTERS ENCOUNTER INFORMATION Reason for Visit Z95.1 Admission September 07, 2024 8:31:[address] [id number] Discharge October 05, 2024 3:59:00 AM [facility] DIS CHARGED TO HOME OR SELF CARE ENCOUNTER DIAGNOSES Notes information is not elvia ilable. Code System Diagnosis Onset Date Diagnosis information is not available. ABSTRACT DIAGNOSES Code System Diagnosis Updated By Z48.812 ICD10 ENCOUNTER FOR AMBROSE RGICAL AFTERCARE FOLLOWING SURGERY ON THE CIRCULATORY SYSTEM [id number] on October 07, 2024 10:29:34 AM [facility] Z95.1 ICD10 PRESENCE OF AORTOCORONARY BY PASS GRAFT [id number] on October 07, 2024 10:29:34 AM [facility] I25.10 ICD10 ATHEROSCLEROTIC HEART DISEASE OF [place] CORONARY ARTERY WITHOUT ANGINA PECTORIS [id number] on October 07, 2024 10:29:34 AM [facility] Z48.812 ICD10 ENCOUNTER FOR AMBROSE RGICAL AFTERCARE FOLLOWING SURGERY ON THE CIRCULATORY SYSTEM [id number] on October 07, 2024 10:29:34 AM [facility] Z95.1 ICD10 PRESENCE OF AORTOCORONARY BY PASS GRAFT [id number] on October 07, 2024 10:29:34 AM [facility] I25.10 ICD10 ATHEROSCLEROTIC HEART DISEASE OF [place] CORONARY ARTERY WITHOUT ANGINA PECTORIS [id number] on October 07, 2024 10:29:34 AM [facility] CARE TEAM Care Vice Chair Role MELANI BAE Primary Attending MELANI BAE Admitting MELANI BAE Referring DEMETRIUS BAGLEY Primary Care CARE TEAM CARE [facility] psychiatrist Role on Team Status Start Date End Date Update d By KATHIA Montez Referring normal September 06 4:38:53 PM [facility] September 07, 2024 5:00:00 AM [facility] [id number] on September 06, 2024 4:38:53 PM [facility] KATHIA Montez Attending normal September 06 4:38:53 PM [facility] September 07, 2024 5:00:00 AM [facility] [id number] on September 06, 2024 4:38:53 PM [facility] KATHIA Montez Admitting normal September 06 4:38:53 PM [facility] September 07, 2024 5:00:00 AM [facility] [id number] on September 06, 2024 4:38:53 PM [facility] YUDI ROMO MD PHY PCP normal September 04 8:31:28 AM [facility] September 07, 2024 5:00:00 AM [facility] [id number] on September 06, 2024 4:38:53 PM [facility]
--- OUTSIDE RECORDS SUMMARY | 2024-10-29 11:06 | XMS_ITS | Continuity of Care Document ---
Author Organization [facility] Phone Care Team Providers Care Will Call Order Clerk Name Role Phone MELANI BAE Unavailable MELANI BAE Admitting DEMETRIUS BAGLEY Primary Care MELANI BAE Primary Attending ALLERGIES AND ADVERSE REACTIONS ALLERGIES AND ADVERSE REACTIONS Code System Allergy Substance Adverse Reaction Date Reaction (Severity) Comment Status Reported By Updated By No Known Allergies [id number] on August 19, 2024 3:43:24 PM [facility] MEDICATIONS HOME MEDICATIONS Status RXNORM [facility] Medication Dose Route Frequency Dates Comments Reported By Updated By Active [id number] 80900 29431 8 Albuterol Sulfate HFA Inhalation Aerosol Solution 108 (90 Base) MCG/ACT 0.0 INHALE D Q4HPRN Last Dose: PATIENT [id number] on August 19, 2024 3:39:51 PM [place] Active 93296 86933 0 ASPIRIN LOW DOSE 81.0 MG ORAL DAILY Last Dose: PATIENT [id number] on August 19, 2024 3:39:54 PM [place] Active 122522 11238 41897 0 Atorvastatin Calcium Oral Tablet 80 MG 80.0 ORAL BEDTIME Last Dose: PATIENT [id number] on August 19, 2024 3:39:56 PM [facility] Active 177610 55293 66933 0 Bisoprolol Fumarate Oral Tablet 5 MG 5.0 ORAL DAILY Last Dose: PATIENT [id number] on August 19, 2024 3:39:56 PM [place] Active 730050 06971 76588 0 furosemide (LASIX) 20.0 MG ORAL PRN Last Dose: PATIENT [id number] on August 19, 2024 3:39:56 PM [place] Active 498220 96193 36582 1 hydroxchloro quine (PLAQUENIL) 200.0 MG ORAL BID Last Dose: PATIENT [id number] on August 19, 2024 3:39:57 PM UTC Active 818155 33160 76913 3 nitroglyceri n SL (NITROSTAT) 0.04 MG SUBLIN GUAL S5KRSEIY Last Dose: PATIENT emory on August 19, 2024 3:39:58 PM [facility] Active 8129396 52001 87558 0 rivaroxaban (XARELTO) 20.0 MG ORAL PCS Last Dose: PATIENT emory on August 19, 2024 3:39:58 PM [facility] Active 200841 53371 85997 5 amLODIPine Besylate Oral Tablet 5 MG 5.0 MG Last Dose: PATIENT emory on August 26, 2024 6:22:47 PM [facility] DISCHARGE MEDICATIONS Status RXNORM NDC Medication Dose Route Frequency Dates Comments Physician Updated By No Discharge Medication Info rmation Available INPATIENT MEDICATIONS Status RXNORM NDC Medication Dose Route Frequency Rat e Quantity Dates Comments Physician Updated By No Inpatient Medication Info rmation Available SOCIAL HISTORY SOCIAL HISTORY SNOMED-CT Social History Element Description Effective Dates Offered Cessation Comment UpdatedBy [id number] Smoking Status Unknown If Ever Smoked SOCIAL [...] ENCOUNTER INFORMATION Reason for Visit Z95.1 Admission August 19, 2024 8:31:[address] [address] Discharge September 04, 2024 4:59:00 AM [facility] DIS CHARGED TO HOME OR SELF CARE ENCOUNTER DIAGNOSES Notes information is not elvia ilable. Code System Diagnosis Onset Date Diagnosis information is not available. ABSTRACT DIAGNOSES Code System Diagnosis Updated By Z48.812 ICD10 ENCOUNTER FOR AMBROSE RGICAL AFTERCARE FOLLOWING SURGERY ON THE CIRCULATORY SYSTEM [id number] on September 06, 2024 3:40:15 PM [facility] I25.10 ICD10 ATHEROSCLEROTIC HEART DISEASE OF [place] CORONARY ARTERY WITHOUT ANGINA PECTORIS [id number] on September 06, 2024 3:40:15 PM [facility] Z48.812 ICD10 ENCOUNTER FOR AMBROSE RGICAL AFTERCARE FOLLOWING SURGERY ON THE CIRCULATORY SYSTEM [id number] on September 06, 2024 3:40:15 PM [facility] I25.10 ICD10 ATHEROSCLEROTIC HEART DISEASE OF [place] CORONARY ARTERY WITHOUT ANGINA PECTORIS [id number] on September 06, 2024 3:40:15 PM [facility] Z95.1 ICD10 PRESENCE OF AORTOCORONARY BY PASS GRAFT [id number] on September 06, 2024 3:40:15 PM [facility] CARE TEAM Care Will Call Order Clerk Role MELANI BAE Referring MELANI BAE Admitting DEMETRIUS BAGLEY Primary Care MELANI BAE Primary Attending CARE TEAM CARE edger technician Role on Team Status Start Date End Date Update d By KATHIA Montez Referring normal August 08, 2024 11:52:44 AM [facility] August 19, 2024 5:00:00 AM [facility] [id number] on August 08, 2024 11:52:44 AM [facility] KATHIA Montez Attending normal August 08, 2024 11:52:44 AM [facility] August 19, 2024 5:00:00 AM [facility] [id number] on August 08, 2024 11:52:44 AM [facility] KATHIA Montez Admitting normal August 08, 2024 11:52:44 AM [facility] August 19, 2024 5:00:00 AM [facility] [id number] on August 08, 2024 11:52:44 AM [facility] YUDI ROMO MD PHY PCP normal August 07, 2024 8:31:48 AM [facility] August 19, 2024 5:00:00 AM [facility] [id number] on August 08, 2024 11:52:44 AM [facility]
[2024-10-29 11:56] LABS: Basophils % 0.4 % (0.1-2.0); Eosinophils # 0.2 Kmm3 (0.0-0.4); Eosinophils % 4.3 % (0.1-12.0); Hematocrit 39.2 % (42.0-52.0); Hemoglobin 12.8 g/dL (14.1-18.0); Lymphocytes # 0.5 K/mm3 (0.7-4.5); Lymphocytes % 10.5 % (10-50); Mean Corpuscular HGB Conc 32.7 g/dL (31.8-35.4); Mean Corpuscular Hemoglobin 28.8 pg (27.0-31.2); Mean Corpuscular Volume 88.1 fl (80-94); Mean Platelet Volume 11.3 fl (7.4-10.4); Monocytes # 0.3 K/mm3 (0.1-1.0); Monocytes % 6.2 % (1.7-9.3); Neutrophils % 78.4 % (37.0-80.0); Nucleated Red Blood Cells # 0 10^3/uL; Nucleated Red Blood Cells % 0 %; Platelet Count 162 K/mm3 (142-424); Red Blood Count 4.45 M/mm3 (4.60-6.20); Red Cell Distribution Width 14.3 % (11.5-17.5); Red Cell Distribution Width-SD 46.2 fL; White Blood Count 5.1 K/mm3 (4.8-10.8)
[2024-10-29 12:06] LABS: MANUAL DIFFERENTIAL MANUAL DIFFERENTIAL (MANUAL DIFF)
[2024-10-29 12:17] LABS: Chloride 103 mmol/L (98-107)
[2024-10-29 12:18] LABS: Potassium 4.2 mmoL/L (3.5-5.1); Sodium 137 mmol/L (136-145)
[2024-10-29 12:20] LABS: Blood Urea Nitrogen 10 mg/dl (9-20); Estimated Glomerular Filt Rate 82 ml/min (>60); GFR (African American) 100 ML/MIN (>60)
[2024-10-29 12:21] LABS: Anion Gap 10.2 mEq/L (5-15); Calcium 8.6 mg/dl (8.4-10.2); Carbon Dioxide 28 mmol/L (22.0-30.0); Glucose 126 mg/dl (74-100)
[2024-10-29 12:42] LABS: Eosinophils % 7 % (0-3); Lymphocytes % 19 % (10-50); Monocytes % 1 % (2-9); Neutrophils % 73 % (42-76); Platelet Estimate Normal; RBC Morphology Normal; Total Cells Counted 100
== END 2024-10-29 23:59 | disposition home or self-care (01) ==
LOC: LAB 11:04
PROVIDERS: PCP Family Medicine; Visit Provider Internal Medicine
DX: I25.118 Atherosclerotic heart disease of native coronary artery with other forms of angina pectoris (principal); I73.9 Peripheral vascular disease, unspecified; Z95.5 Presence of coronary angioplasty implant and graft
CPT/HCPCS: 36415; 80048; 85007; 85025; 85027

== ENCOUNTER 2024-11-15 13:05 | Observation (INO) | payer MEDICARE, SELFPAY ==
[2024-11-15] VITALS (70 sets, daily range): BP systolic 130–182; BP diastolic 65–106; PULSE 62–80; RESP 14–20; TEMP 36.3–37.3; O2SAT 95–100; BMI 27.2
--- NOTE | 2024-11-15 07:05 | IR_ITS ---
APPROVED REPORT Patient Location: Outpatient PROCEDURES Right femoral arterial access Catheter placement in the left popliteal artery Left popliteal artery antegrade selective angiogram Bare-metal self-expanding stent deployment to the left popliteal artery extending back into the left SFA INDICATION [place] claudication class III-IV, Occluded SFA popliteal artery Informed consent was obtained prior to the procedure. COMPLICATIONS NONE Estimated Blood Loss: LESS THAN 10 ML TECHNIQUE 1% lidocaine used anesthetize right coronary for orders accessed via the central technique and a 5 [place] sheath displaced in the right femoral artery. A rim catheter was advanced to the distal abdominal aorta and an advantage wire was placed under fluoroscopic guidance into the left SFA. Therapeutic heparin was administered giving a therapeutic ACT. The sheath was removed and exchanged for a 45 cm destination sheath. Using a trailblazer and an advantage wire the wire was pushed through the occlusion of the left SFA into the popliteal artery. Once it recanalized the wire was pulled back and selective angiography was performed to confirm presence of luminal insertion. At this point the wire was placed back into the infrageniculate vessel and a 5 mm x 100 mm balloon was deployed at 12 kelle throughout the popliteal artery and distal SFA. Following this a 6 mm x 115 mm self-expanding bare-metal stent was deployed in the popliteal artery at the pregeniculate level extending back into the left SFA. The balloon was reinserted and deployed at 12 kelle to further post dilate. Excellent angiographic results were obtained with wide patency of the artery at the end of the procedure. The apparatus was removed the patient was transferred to the postop putting in stable condition for sheath removal IMPRESSION Chronically occluded left SFA and popliteal artery Successful percutaneous revascularization of the left SFA and left popliteal artery 100% occlusion reduced to less than 10% with 1 bare-metal self-expanding stent as described above PLAN 1. Monitor overnight due to femoral arterial access and presence of atherosclerotic calcified disease in the right femoral artery. Patient is a high risk for rebleed and should be monitored 2. Aspirin Plavix 3. Physical therapy 4. Risk factor modification 5. Avoidance of tobacco products 6. LDL less than 55 to be achieved with high intensity statin Electronically signed by : Tyler Argueta MD 11/15/2024 12:35:42
[2024-11-15 08:47] LABS: Chloride 107 mmol/L (98-107); Potassium 4.2 mmoL/L (3.5-5.1); Sodium 136 mmol/L (136-145)
[2024-11-15 08:48] LABS: Basophils % 0.6 % (0.1-2.0); Eosinophils # 0.2 Kmm3 (0.0-0.4); Eosinophils % 3.2 % (0.1-12.0); Hematocrit 38.6 % (42.0-52.0); Immature Granulocytes # 0.02 10^3uL; Immature Granulocytes % 0.4 %; Lymphocytes # 0.6 K/mm3 (0.7-4.5); Lymphocytes % 11.8 % (10-50); Mean Corpuscular HGB Conc 33.7 g/dL (31.8-35.4); Mean Corpuscular Hemoglobin 29.5 pg (27.0-31.2); Mean Corpuscular Volume 87.7 fl (80-94); Mean Platelet Volume 11.1 fl (7.4-10.4); Monocytes # 0.5 K/mm3 (0.1-1.0); Nucleated Red Blood Cells # 0 10^3/uL; Nucleated Red Blood Cells % 0 %; Platelet Count 187 K/mm3 (142-424); Red Cell Distribution Width 14.4 % (11.5-17.5); Red Cell Distribution Width-SD 46.2 fL; White Blood Count 5.3 K/mm3 (4.8-10.8)
[2024-11-15 08:49] LABS: Blood Urea Nitrogen 13 mg/dl (9-20); Creatinine Clearance Estimated 84 mL/min (50-200); Estimated Glomerular Filt Rate 94 ml/min (>60); GFR (African American) 114 ML/MIN (>60)
[2024-11-15 08:50] LABS: Anion Gap 8.2 mEq/L (5-15); Calcium 8.4 mg/dl (8.4-10.2); Carbon Dioxide 25 mmol/L (22.0-30.0); Glucose 95 mg/dl (74-100)
[2024-11-15] MEDS: MIDAZOLAM HCL 1MG/ML 5ML VIAL 1 MG IV (09:40)
[2024-11-15] MEDS: HEPARIN 1,000 UNITS/500ML NS (CATH LAB) 3000 UNIT IV (09:41)
[2024-11-15] MEDS: diphenhydrAMINE 50MG/ML VIAL 50 MG IV (09:41)
[2024-11-15] MEDS: 0.9 % SODIUM CHLORIDE 500 ML 25 ML IV (09:41)
[2024-11-15] MEDS: LIDOCAINE 1% 10ML MDV 10 ML IJ (09:41)
[2024-11-15] MEDS: FENTANYL 100MCG/2ML VIAL 50 MCG IV (09:41)
[2024-11-15] MEDS: HEPARIN 1,000 UNITS/ML 10ML VIAL (CATH LAB) 5000 UNIT IV (09:41)
--- NOTE | 2024-11-15 11:26 | HMH.PHAINT1 ---
Pharmacy Intervention Comments: MEDICATION RECONCILIATION COMPLETED ON PATIENT USING EXTERNAL FILL HISTORY FROM PHARMACY AND LIST FROM CARDIOLOGY OFFICE. -AGGIE TINAJERO, LUKED
[2024-11-15] MEDS: HYDRALAZINE 20MG/ML VIAL 20 MG IV (12:20)
[2024-11-15] MEDS: IOPAMIDOL-370 (76%);100ML BOTTLE 90 ML IV (14:21)
[2024-11-15 14:22] LABS: CATHL Activated Clotting Time 234 SEC (74-125)
--- NOTE | 2024-11-15 16:25 | EXP.HP ---
History of Present Illness *Admission Date: 11/15/24 *Reason for visit:: S/p right peripheral leg revascularization *History of present illness: Terry Mercado is a 74-year-old male with a medical history significant for CABG x 4, CAD with stents, PAD, COPD on room air, A-fib on Eliquis, hypertension who presented for right lower extremity PCI s/p revascularization of SFA and left popliteal artery with 100% occlusion with stent. Patient tolerated procedure well. Dr. Argueta contacted me as arteries were very calcified and was concern for post stent thrombotic events. Requested admission for monitoring and accepted. Creatinine 0.80, GFR 94. CBC unremarkable. PFSH [facility] Disclaimer: The information contained in this section may have been updated after the patient was seen, as this information can be updated by other users. Medical History Claudication Abnormal computed tomography of lower extremity Typical angina Abnormal ankle brachial index (HANNA) Abnormal findings on diagnostic imaging of heart and coronary circulation COPD (chronic obstructive pulmonary disease) History of heart attack Hypertension Surgical History S/P CABG x 4 Family History (Updated 11/15/24 @ 13:52 by [place] Atwood, CHEYANNE) Other Brain cancer Family history of COPD (chronic obstructive pulmonary disease) Family history of cancer Family history of hyperlipidemia Family history of hypertension Family history of myocardial infarction Social History (Updated 11/15/24 @ 13:52 by Florida Atwood RN) Smoking Status: Former smoker alcohol intake: never current occupational status: retired Travel in the last 8 weeks?: None Have you lived/traveled outside US in past 30 days?: No Contact w/someone who lives/traveled outside US past 30 days?: No Exposure to someone with infectious disease in past 14 days?: No Do you have a fever (greater than 100.4 F or 38 C)?: No Have you tested positive for COVID-19?: No Exposed to someone with COVID-19 in past 14 days?: No Do you have a sore throat?: No Do you have a cough?: No Do you have any weakness?: No Do you have any diarrhea?: No Are you experiencing any unusual bleeding?: No Do you have any muscle aches/pain?: No Do you have any abdominal pain?: No Are you experiencing loss of taste or smell?: No Other Medical History Have you received the Flu Vaccine for this season: No Have you received the Pneumonia Vaccine: No Meds Home Medications and Allergies Home Medications ?Medication ?Instructions ?Recorded ?Confirmed ?Type bisoprolol fumarate 10 mg tablet 10 mg PO DAILY #90 tabs 12/15/23 11/15/24 Rx albuterol sulfate 90 mcg/actuation 2 puff inhalation Q4HP PRN 03/30/24 11/15/24 History aerosol inhaler Shortness Of Breath nitroglycerin 0.4 mg sublingual 0.4 mg sublingual Q5-15M PRN chest 04/15/24 11/15/24 Rx tablet pain #30 tabs apixaban 5 mg tablet (Eliquis) 5 mg PO BID #60 tabs 09/06/24 11/15/24 Rx losartan 100 mg tablet 100 mg PO DAILY #90 tabs 10/07/24 11/15/24 Rx clopidogrel 75 mg tablet (Plavix) 75 mg PO DAILY #90 tabs 11/03/24 11/15/24 Rx atorvastatin 80 mg tablet 80 mg PO DAILY 11/15/24 11/15/24 History New Prescriptions to Start Prescriptions: Allergies Allergy/AdvReac Type Severity Reaction Status Date / Time procaine (From Novocain) AdvReac Verified 11/03/24 14:10 Exam Data for Last 24 hours Vital signs and Labs for Last 24 Hours: Temp Pulse Resp BP Pulse Ox O2 Del Method 98.2 F 75 14 138/74 97 Room Air 11/15/24 13:55 11/15/24 15:41 11/15/24 15:41 11/15/24 15:41 11/15/24 15:41 11/15/24 15:41 Laboratory Results - last 24 hr 11/15/24 08:35: WBC 5.3, RBC 4.40 L, Hgb 13.0 L, Hct 38.6 L, MCV 87.7, MCH 29.5, MCHC 33.7, RDW 14.4, Plt Count 187, MPV 11.1 H, Neut % (Auto) 75.0, Lymph % (Auto) 11.8, [place] % (Auto) 9.0, Eos % (Auto) 3.2, Baso % (Auto) 0.6, Neut # (Auto) 4.0, Lymph # (Auto) 0.6 L, [place] # (Auto) 0.5, Eos # (Auto) 0.2, Baso # (Auto) 0.0, Sodium 136, Potassium 4.2, Chloride 107, Carbon Dioxide 25, Anion Gap 8.2, BUN 13, Creatinine 0.80, Estimated Creat Clear 84, Estimated GFR 94, Est GFR ( Amer) 114, Glucose 95, Calcium 8.4 11/15/24 10:07: Activated Clotting Time 234 H* I & O for Last 24 hours: Intake & Output 11/12/24 11/13/24 11/14/24 11/15/24 23:59 23:59 23:59 23:59 Weight 91.172 kg Constitutional Constitutional: no acute distress *Routine HEENT Exam Head: Present normocephalic Eye: Present EOMI and PERRL ENT: Present mucous membranes moist *Routine Neck Exam Neck: Present supple; Absent lymphadenopathy *Routine Respiratory Exam Respiratory: Present CTA bilaterally *Routine Cardiovascular Exam Cardiovascular: Present RRR *Routine Abdominal Exam Abdominal: Present soft and normoactive bowel sounds; Absent tenderness *Routine Rectal Exam Rectal:: deferred *Routine Genitalia Exam Genitalia:: deferred *Routine Extremities Exam Extremities: Absent cyanosis, clubbing or edema *Routine Skin Exam Skin: Present warm; Absent rash *Routine Neurological Exam Neurological: Present alert and oriented X3 Assessment and Plan *Assessment and plan (1) Claudication: Status: Acute Category: Medical Code(s): I73.9 - Peripheral vascular disease, unspecified Plan Terry Mercado is a 74-year-old male with a medical history significant for CABG x 4, CAD with stents, PAD, COPD on room air, A-fib on Eliquis, hypertension who presented for left lower extremity PCI s/p revascularization of SFA and left popliteal artery with 100% occlusion with stent. Patient tolerated procedure well. Dr. Argueta contacted me as arteries were very calcified and was concern for post stent thrombotic events. Requested admission for monitoring and accepted. Creatinine 0.80, GFR 94. CBC unremarkable. #PAD #History of CABG x 4, CAD with stents #Hypertension ? S/p outpatient PCI to left SFA and popliteal artery with stent. Dr. Argueta was concerned of high calcification in his arteries, requested admission for monitoring. Patient tolerated procedure well. ? Has had left lower extremity claudication, numbness/tingling over the past weeks. ? Hemoglobin 13.0, vital signs stable. Renal function stable. ? Follow-up A1c, LDL, TSH. Former smoker. ? Resume home Plavix 75 mg, Eliquis 5 mg twice daily tomorrow. ? Continue home bisoprolol 10 mg daily. #A-fib ? Currently rate controlled. Continue home bisoprolol, Eliquis tomorrow. Full code DVT prophylaxis: Hold AC tonight as patient had cath today
[2024-11-15] MEDS: ATORVASTATIN 40MG TABLET 80 MG PO (20:03)
[2024-11-15] MEDS: CLOPIDOGREL 75MG TAB 75 MG PO (20:03)
[2024-11-15] MEDS: BISOPROLOL FUMARATE 10 MG 10 EACH PO (20:03)
[2024-11-16] VITALS: BP 137/63; PULSE 75; PULSE 77; RESP 18; TEMP 36.9; O2SAT 94
[2024-11-16 04:00] VITALS: BP 143/70; PULSE 75; PULSE 77; RESP 19; TEMP 36.8; O2SAT 95; BMI 28.3
--- NOTE | 2024-11-16 04:20 | PC.NURSE ---
Patient is alert and oriented x4. He was observed to have eyes closed, respirations even and unlabored on room air, and no apparent distress throughout the majority of the night. Right femoral cath site was assessed; dressing remains clean, dry, and intact. No bleeding, pain, or further bruising noted. Pulses +1, skin temperature warm and even with surrounding areas. No swelling noted to extremities. Aflutter on telemetry. Upon auscultation of his lungs, rhonchi was heard in the right upper lobe; other lobes sounded clear throughout. Heart and bowel sounds within normal findings. Scheduled medications were administered as appropriately per MAR; aspirin refused by the patient this shift. Home medications were brought in by the patient's yesterday evening; these medications have been secured in the [facility]. Patient ambulates independently at baseline; he has remained in bed to rest during the night. Urinal at bedside for urination needs. Dinner tray was consumed this shift after 19:00, of which the patient was allowed to sit post-cath procedure. Post-angio assessments and vital sign assessments were completed during this shift. At this time, the patient is resting in bed without any further complaints. No new needs at this time. Call light within reach.
[2024-11-16 06:31] LABS: Basophils % 0.7 % (0.1-2.0); Eosinophils # 0.1 Kmm3 (0.0-0.4); Eosinophils % 2.2 % (0.1-12.0); Hematocrit 36.8 % (42.0-52.0); Hemoglobin 12.3 g/dL (14.1-18.0); Immature Granulocytes # 0.01 10^3uL; Immature Granulocytes % 0.2 %; Lymphocytes # 0.7 K/mm3 (0.7-4.5); Lymphocytes % 11.9 % (10-50); Mean Corpuscular HGB Conc 33.4 g/dL (31.8-35.4); Mean Corpuscular Volume 86.8 fl (80-94); Mean Platelet Volume 10.9 fl (7.4-10.4); Monocytes # 0.5 K/mm3 (0.1-1.0); Neutrophils # 4.4 K/mm3 (1.8-7.8); Nucleated Red Blood Cells # 0 10^3/uL; Nucleated Red Blood Cells % 0 %; Platelet Count 166 K/mm3 (142-424); Red Blood Count 4.24 M/mm3 (4.60-6.20); Red Cell Distribution Width 14.6 % (11.5-17.5); Red Cell Distribution Width-SD 46.2 fL; White Blood Count 5.8 K/mm3 (4.8-10.8)
[2024-11-16 06:54] LABS: Anion Gap 7.1 mEq/L (5-15); Blood Urea Nitrogen 13 mg/dl (9-20); Calcium 8.8 mg/dl (8.4-10.2); Carbon Dioxide 25 mmol/L (22.0-30.0); Chloride 107 mmol/L (98-107); Creatinine Clearance Estimated 87 mL/min (50-200); Estimated Glomerular Filt Rate 82 ml/min (>60); GFR (African American) 100 ML/MIN (>60); Glucose 89 mg/dl (74-100); Potassium 4.1 mmoL/L (3.5-5.1); Sodium 135 mmol/L (136-145)
[2024-11-16 07:24] LABS: Magnesium 2.1 mg/dl (1.6-2.3)
[2024-11-16 07:50] VITALS: BP 146/72; PULSE 75; RESP 18; TEMP 36.8; O2SAT 96
[2024-11-16 08:00] VITALS: PULSE 70
--- NOTE | 2024-11-16 08:04 | P.DS_ITS ---
General Admission date:: 11/15/24 Discharge date: 11/16/24 HPI HPI HPI: Terry Mercado is a 74-year-old male with a medical history significant for CABG x 4, CAD with stents, PAD, COPD on room air, A-fib on Eliquis, hypertension who presented for right lower extremity PCI s/p revascularization of SFA and left popliteal artery with 100% occlusion with stent. Patient tolerated procedure well. Dr. Argueta contacted me as arteries were very calcified and was concern for post stent thrombotic events. Requested admission for monitoring and accepted. Creatinine 0.80, GFR 94. CBC unremarkable. Hospital Course Hospital Course Hospital Course: Terry Mercado is a 74-year-old male with a medical history significant for CABG x 4, CAD with stents, PAD, COPD on room air, A-fib on Eliquis, hypertension who presented for left lower extremity PCI s/p revascularization of SFA and left popliteal artery with 100% occlusion with stent. Patient tolerated procedure well. Dr. Argueta contacted me as arteries were very calcified and was concern for post stent thrombotic events. Requested admission for monitoring and accepted. Creatinine 0.80, GFR 94 at time of admission. CBC normal. Did well overnight with no events. Stable to discharge in the morning. Problems addressed as follows: #PAD #History of CABG x 4, CAD with stents #Hypertension ? S/p outpatient PCI to left SFA and popliteal artery with stent. Dr. Argueta was concerned of high calcification in his arteries, requested admission for monitoring. Patient tolerated procedure well. Has had left lower extremity claudication, numbness/tingling over the past weeks. Hemoglobin remained stable between 12-13 during admission. Kidney function remained stable with BUN 13, creatinine 0.9. Making good urine. A1c 5.7, TSH in July of 0.9. Resume home Plavix 75 mg, Eliquis 5 mg twice daily tomorrow. No indication for aspirin at this time. Continue home bisoprolol 10 mg daily. #A-fib: Currently rate controlled. Continue home bisoprolol, Eliquis. Exam Data for Last 24 hours Vital signs and Labs for Last 24 Hours: Temp Pulse Resp BP Pulse Ox O2 Del Method 98.3 F 75 18 146/72 H 96 Room Air 11/16/24 07:50 11/16/24 07:50 11/16/24 07:50 11/16/24 07:50 11/16/24 07:50 11/16/24 07:50 Laboratory Results - last 24 hr 11/15/24 08:35: WBC 5.3, RBC 4.40 L, Hgb 13.0 L, Hct 38.6 L, MCV 87.7, MCH 29.5, MCHC 33.7, RDW 14.4, Plt Count 187, MPV 11.1 H, Neut % (Auto) 75.0, Lymph % (Auto) 11.8, [place] % (Auto) 9.0, Eos % (Auto) 3.2, Baso % (Auto) 0.6, Neut # (Auto) 4.0, Lymph # (Auto) 0.6 L, [place] # (Auto) 0.5, Eos # (Auto) 0.2, Baso # (Auto) 0.0, Sodium 136, Potassium 4.2, Chloride 107, Carbon Dioxide 25, Anion Gap 8.2, BUN 13, Creatinine 0.80, Estimated Creat Clear 84, Estimated GFR 94, Est GFR ( Amer) 114, Glucose 95, Calcium 8.4 11/15/24 10:07: Activated Clotting Time 234 H* 11/16/24 05:42: WBC 5.8, RBC 4.24 L, Hgb 12.3 L, Hct 36.8 L, MCV 86.8, MCH 29.0, MCHC 33.4, RDW 14.6, Plt Count 166, MPV 10.9 H, Neut % (Auto) 76.0, Lymph % (Auto) 11.9, [place] % (Auto) 9.0, Eos % (Auto) 2.2, Baso % (Auto) 0.7, Neut # (Auto) 4.4, Lymph # (Auto) 0.7, [place] # (Auto) 0.5, Eos # (Auto) 0.1, Baso # (Auto) 0.0, Sodium 135 L, Potassium 4.1, Chloride 107, Carbon Dioxide 25, Anion Gap 7.1, BUN 13, Creatinine 0.90, Estimated Creat Clear 87, Estimated GFR 82, Est GFR ( Amer) 100, Glucose 89, Calcium 8.8, Magnesium 2.1 I & O for Last 24 hours: Intake & Output 11/13/24 11/14/24 11/15/24 11/16/24 23:59 23:59 23:59 23:59 Intake Total 120 / 358 238 / 238 Output Total 1490 / 1490 450 / 450 Balance -1370 / -1132 -212 / -212 Weight 91.172 kg 94.755 kg Constitutional Constitutional: no acute distress *Routine HEENT Exam Head: Present normocephalic Eye: Present EOMI and PERRL ENT: Present mucous membranes moist *Routine Neck Exam Neck: Present supple; Absent lymphadenopathy *Routine Respiratory Exam Respiratory: Present CTA bilaterally *Routine Cardiovascular Exam Cardiovascular: Present RRR *Routine Abdominal Exam Abdominal: Present soft and normoactive bowel sounds; Absent tenderness *Routine Rectal Exam Patient deferred: visual exam *Routine Exam Patient deferred: penile exam *Routine Extremities Exam Extremities: Absent cyanosis, clubbing or edema Comments: Right femoral access clean dry and intact with no bleeding or hematoma *Routine Skin Exam Skin: Present warm; Absent rash *Routine Neurological Exam Neurological: Present alert, oriented X3 and moving all extremities; Absent altered mental status Routine Psychiatric Exam Psychiatric: Present normal affect Results Data Completed and Pending Labs on day of discharge: Labs from last 24 hours 11/16/24 11/15/24 11/15/24 05:42 10:07 08:35 WBC 5.8 5.3 RBC 4.24 L 4.40 L Hgb 12.3 L 13.0 L Hct 36.8 L 38.6 L MCV 86.8 87.7 MCH 29.0 29.5 MCHC 33.4 33.7 RDW 14.6 14.4 Plt Count 166 187 MPV 10.9 H 11.1 H Neut % (Auto) 76.0 75.0 Lymph % (Auto) 11.9 11.8 [place] % (Auto) 9.0 9.0 Eos % (Auto) 2.2 3.2 Baso % (Auto) 0.7 0.6 Neut # (Auto) 4.4 4.0 Lymph # (Auto) 0.7 0.6 L [place] # (Auto) 0.5 0.5 Eos # (Auto) 0.1 0.2 Baso # (Auto) 0.0 0.0 Activated Clotting Time 234 H* Sodium 135 L 136 Potassium 4.1 4.2 Chloride 107 107 Carbon Dioxide 25 25 Anion Gap 7.1 8.2 BUN 13 13 Creatinine 0.90 0.80 Estimated Creat Clear 87 84 Estimated GFR 82 94 Est GFR ( Amer) 100 114 Glucose 89 95 Calcium 8.8 8.4 Magnesium 2.1 DS: Diagnosis Discharge Diagnosis (1) Claudication: Status: Acute Code(s): I73.9 - Peripheral vascular disease, unspecified (2) S/P CABG x 4: Status: Acute Code(s): Z95.1 - Presence of aortocoronary bypass graft (3) HFrEF (heart failure with reduced ejection fraction): Status: Acute Code(s): I50.20 - Unspecified systolic (congestive) heart failure (4) PAF (paroxysmal atrial fibrillation): Status: Acute Code(s): I48.0 - Paroxysmal atrial fibrillation (5) Hypertension: Status: Acute Code(s): I10 - Essential (primary) hypertension Qualifiers: Hypertension type: primary hypertension Qualified Code(s): I10 - Essential (primary) hypertension (6) Hyperlipidemia: Status: Acute Code(s): E78.5 - Hyperlipidemia, unspecified Qualifiers: Hyperlipidemia type: mixed hyperlipidemia Qualified Code(s): E78.2 - Mixed hyperlipidemia (7) CAD (coronary artery disease): Status: Acute Code(s): I25.10 - Atherosclerotic heart disease of [place] coronary artery without angina pectoris Qualifiers: Associated angina: unspecified whether angina present Coronary Disease- Associated Artery/Lesion type: [place] artery [place] vs. transplanted heart: [place] heart Qualified Code(s): I25.10 - Atherosclerotic heart disease of [place] coronary artery without angina pectoris Meds Home Medications and Allergies Home Medications ?Medication ?Instructions ?Recorded ?Confirmed ?Type albuterol sulfate 90 mcg/actuation 2 puff inhalation Q4HP PRN 03/30/24 11/15/24 History aerosol inhaler Shortness Of Breath nitroglycerin 0.4 mg sublingual 0.4 mg sublingual Q5-15M PRN chest 04/15/24 11/15/24 Rx tablet pain #30 tabs apixaban 5 mg tablet (Eliquis) 5 mg PO BID #60 tabs 09/06/24 11/15/24 Rx atorvastatin 80 mg tablet 80 mg PO HS 11/15/24 11/15/24 History bisoprolol fumarate 10 mg tablet 10 mg PO HS 11/15/24 11/15/24 History clopidogrel 75 mg tablet (Plavix) 75 mg PO HS 11/15/24 11/15/24 History losartan 100 mg tablet 100 mg PO HS 11/15/24 11/15/24 History New Prescriptions to Start Prescriptions: Allergies Allergy/AdvReac Type Severity Reaction Status Date / Time procaine (From Novocain) AdvReac Verified 11/03/24 14:10 Discharge Plan Disposition Patient Disposition: Home, Self-Care Condition: Fair Follow up Plan Follow up with: Roland Conley [Primary Care Provider] - Enter time for follow up Tyler Argueta MD [Staff Physician] - 11/22/24 10:00 am Prescriptions/Medication Reconciliation: Continued albuterol sulfate 90 mcg/actuation HFA aerosol inhaler 2 puff inhalation Q4HP PRN (Reason: Shortness Of Breath) Patient Comments: INHALE 2 PUFF EVERY 4 HOURS NEEDED FOR SHORTNESS OF BREATH Eliquis 5 mg tablet 5 mg PO BID Qty: 60 2RF nitroglycerin 0.4 mg tablet, sublingual 0.4 mg sublingual Q5-15M PRN (Reason: chest pain) Qty: 30 0RF Rx Instructions: do not exceed 3 doses per episode atorvastatin 80 mg tablet 80 mg PO HS clopidogrel [Plavix] 75 mg tablet 75 mg PO HS bisoprolol fumarate 10 mg tablet 10 mg PO HS losartan 100 mg tablet 100 mg PO HS Problem Reconciliation Problems Reviewed?: Yes Patient Discharge Instructions ACTIVITY: Continue current activity DIET: continue same diet and low fat, low cholesterol Patient Instructions: DI for Cardiac Catheterization, DI for Surgical Site Infection, DI for Moderate Sedation, Exercise-based Cardiac Rehabilitation May Decrease Risk of and Future Heart Procedures, DI for Post-Surgical Bleeding, Stop Light COPD, Stop Light Heart Failure Print Language: Yemeni Providers Primary Care Provider: Roland Conley Admit Provider: Tyler Argueta Attending Provider: Chris Mcdonough
[2024-11-16 09:17] LABS: Hemoglobin A1C 5.7 % (4.0-6.0)
--- NOTE | 2024-11-16 11:16 | EXP.CARD.CON ---
History of Present Illness History of Present Illness Consult date: 11/16/24 Consult reason: post-op evaluation Chief complaint: Claudication History of present illness: 74-year-old white male established patient of our office with a history of CABG 2023 and stenting to left main and LAD in October of this year. Also has paroxysmal atrial flutter and HFimpEF, PAD, COPD, ongoing tobacco use. Patient was seen outpatient for worsening claudication and came for staged PCI to left SFA yesterday. He was kept overnight due to heavy calcification to monitor for adverse events. This morning patient states left lower extremity is improving. He has no pain from his right groin cath site. CBC, CMP vitals all normal. He feels ready for discharge. [facility] Disclaimer: The information contained in this section may have been updated after the patient was seen, as this information can be updated by other users. Medical History Claudication Abnormal computed tomography of lower extremity Typical angina Abnormal ankle brachial index (HANNA) Abnormal findings on diagnostic imaging of heart and coronary circulation COPD (chronic obstructive pulmonary disease) History of heart attack Hypertension Surgical History S/P CABG x 4 Family History Other Brain cancer Family history of COPD (chronic obstructive pulmonary disease) Family history of cancer Family history of hyperlipidemia Family history of hypertension Family history of myocardial infarction Social History Smoking Status: Former smoker alcohol intake: never current occupational status: retired Travel in the last 8 weeks?: None Have you lived/traveled outside US in past 30 days?: No Contact w/someone who lives/traveled outside US past 30 days?: No Exposure to someone with infectious disease in past 14 days?: No Do you have a fever (greater than 100.4 F or 38 C)?: No Have you tested positive for COVID-19?: No Exposed to someone with COVID-19 in past 14 days?: No Do you have a sore throat?: No Do you have a cough?: No Do you have any weakness?: No Do you have any diarrhea?: No Are you experiencing any unusual bleeding?: No Do you have any muscle aches/pain?: No Do you have any abdominal pain?: No Are you experiencing loss of taste or smell?: No Review of Systems Constitutional Constitutional: Denies fatigue and Denies weakness Eyes Eyes: Denies loss of vision ENT Ears, Nose, Mouth, and Throat: Denies hearing loss and Denies vertigo *Cardiovascular Cardiovascular: Denies chest pain, Denies dyspnea and Denies syncope *Respiratory Respiratory: Denies cough and Denies dyspnea *Gastrointestinal Gastrointestinal: Denies change in stool character, Denies nausea and Denies vomiting *Genitourinary Genitourinary: Denies difficulty urinating *Musculoskeletal Musculoskeletal: Denies muscle weakness Integumentary/Breasts Skin/Breast: Denies changing lesions *Neurologic Neurologic: Denies loss of vision, Denies syncope, Denies vertigo and Denies weakness Endocrine Endocrine: Denies fatigue Exam Data for Last 24 hours Vital signs and Labs for Last 24 Hours: Temp Pulse Resp BP Pulse Ox O2 Del Method 98.3 F 70 18 146/72 H 96 Room Air 11/16/24 07:50 11/16/24 08:00 11/16/24 07:50 11/16/24 07:50 11/16/24 07:50 11/16/24 08:00 Laboratory Results - last 24 hr 11/15/24 10:07: Activated Clotting Time 234 H* 11/16/24 05:42: WBC 5.8, RBC 4.24 L, Hgb 12.3 L, Hct 36.8 L, MCV 86.8, MCH 29.0, MCHC 33.4, RDW 14.6, Plt Count 166, MPV 10.9 H, Neut % (Auto) 76.0, Lymph % (Auto) 11.9, [place] % (Auto) 9.0, Eos % (Auto) 2.2, Baso % (Auto) 0.7, Neut # (Auto) 4.4, Lymph # (Auto) 0.7, [place] # (Auto) 0.5, Eos # (Auto) 0.1, Baso # (Auto) 0.0, Sodium 135 L, Potassium 4.1, Chloride 107, Carbon Dioxide 25, Anion Gap 7.1, BUN 13, Creatinine 0.90, Estimated Creat Clear 87, Estimated GFR 82, Est GFR ( Amer) 100, Glucose 89, Hemoglobin A1c 5.7, Calcium 8.8, Magnesium 2.1 I & O for Last 24 hours: Intake & Output 11/13/24 11/14/24 11/15/24 11/16/24 23:59 23:59 23:59 23:59 Intake Total 120 / 358 478 / 478 Output Total 1490 / 1490 450 / 450 Balance -1370 / -1132 Weight 201 lb 208 lb 14.4 oz Constitutional Constitutional: no acute distress and cooperative *Routine HEENT Exam Eye: Present PERRL *Routine Respiratory Exam Respiratory: Present CTA bilaterally; Absent accessory muscle use, wheezes or crackles *Routine Cardiovascular Exam Cardiovascular: Present RRR, Normal S1 and Normal S2; Absent murmur, gallop or rubs *Routine Abdominal Exam Abdominal: Present soft; Absent tenderness *Routine Extremities Exam Extremities: Present pulses intact; Absent cyanosis or edema *Routine Skin Exam Skin: Present intact; Absent erythema or wounds *Routine Neurological Exam Neurological: Present alert and oriented X3 Routine Psychiatric Exam Psychiatric: Present cooperative Meds Home Medications and Allergies Home Medications ?Medication ?Instructions ?Recorded ?Confirmed ?Type albuterol sulfate 90 mcg/actuation 2 puff inhalation Q4HP PRN 03/30/24 11/15/24 History aerosol inhaler Shortness Of Breath nitroglycerin 0.4 mg sublingual 0.4 mg sublingual Q5-15M PRN chest 04/15/24 11/15/24 Rx tablet pain #30 tabs apixaban 5 mg tablet (Eliquis) 5 mg PO BID #60 tabs 09/06/24 11/15/24 Rx atorvastatin 80 mg tablet 80 mg PO HS 11/15/24 11/15/24 History bisoprolol fumarate 10 mg tablet 10 mg PO HS 11/15/24 11/15/24 History clopidogrel 75 mg tablet (Plavix) 75 mg PO HS 11/15/24 11/15/24 History losartan 100 mg tablet 100 mg PO HS 11/15/24 11/15/24 History New Prescriptions to Start Prescriptions: Allergies Allergy/AdvReac Type Severity Reaction Status Date / Time procaine (From Novocain) AdvReac Verified 11/03/24 14:10 Assessment and Plan *Assessment and plan (1) S/P CABG x 4: Status: Acute Category: Surgical Code(s): Z95.1 - Presence of aortocoronary bypass graft (2) HFrEF (heart failure with reduced ejection fraction): Status: Acute Category: Medical Code(s): I50.20 - Unspecified systolic (congestive) heart failure (3) Peripheral artery disease: Status: Acute Category: Medical Code(s): I73.9 - Peripheral vascular disease, unspecified Plan PAD status post successful left SFA intervention - Home with Plavix, Eliquis, statin - Discussed extensively with patient about limitations following right groin stick x 1 week CAD status post CABG - CCS =0 - Continue home meds PAF - Sinus rhythm here - Continue home meds HFimpEF - NYHA = 0 - euvolemic here - he is schedule for OP ECHO tomorrow - cont home meds CV stable for discharge home
--- NOTE | 2024-11-17 10:10 | SW/DCPLANNER ---
Spoke with patient on the phone. Patient stated that he is doing good. Patient stated that he is aware of his upcoming appointments. Patient stated that he has gotten his new medicine picked up from [facility]. Patient stated that he has no concerns or questions at this time. Nellie GUTIERREZ [employer]
== END 2024-11-16 11:45 | disposition home or self-care (01) ==
LOC: 2ND 13:05
PROVIDERS: Admitting Provider Internal Medicine; PCP Family Medicine; Visit Provider Student in an Organized Health Care Education/Training Program
PROC: 4A023N7 Measurement of Cardiac Sampling and Pressure, Left Heart, Percutaneous Approach (ICD-10-PCS; CPT 93452; principal; 2024-11-15 07:15)
DX: I25.10 Atherosclerotic heart disease of native coronary artery without angina pectoris (principal); I70.212 Atherosclerosis of native arteries of extremities with intermittent claudication, left leg; I11.0 Hypertensive heart disease with heart failure; R93.6 Abnormal findings on diagnostic imaging of limbs; I50.20 Unspecified systolic (congestive) heart failure; Z95.1 Presence of aortocoronary bypass graft; I48.0 Paroxysmal atrial fibrillation; E78.2 Mixed hyperlipidemia; I77.1 Stricture of artery; I25.2 Old myocardial infarction; I70.1 Atherosclerosis of renal artery; Z79.51 Long term (current) use of inhaled steroids; Z79.01 Long term (current) use of anticoagulants; I70.92 Chronic total occlusion of artery of the extremities
CPT/HCPCS: 36415; 37226; 80048; 83036; 83735; 85025; 85347; 99152; 99153; C1725; C1766; C1769; C1876; C1894; G0378; J0360; J1200; J1644; J3010; Q9967

== ENCOUNTER 2024-11-17 11:04 | Outpatient (CLI) | payer MEDICARE, SELFPAY ==
--- OUTSIDE RECORDS SUMMARY | 2024-11-17 11:06 | XMS_ITS | Continuity of Care Document ---
Author Organization [facility] Phone Care Team Providers Care Applied Psychology Chair Name Role Phone MELANI BAE Primary Attending [phone] MELANI BAE Unavailable DEMETRIUS BAGLEY Primary Care MELANI BAE Admitting ALLERGIES AND ADVERSE REACTIONS ALLERGIES AND ADVERSE REACTIONS Code System Allergy Substance Adverse Reaction Date Reaction (Severity) Comment Status Reported By Updated By No Known Allergies [id number] on August 19, 2024 3:43:24 PM [facility] MEDICATIONS HOME MEDICATIONS Status RXNORM NDC Medication [...] Description Effective Dates Offered Cessation Comment UpdatedBy [id number] Smoking Status Unknown If Ever Smoked SOCIAL [...] ENCOUNTER INFORMATION Reason for Visit Z95.1 Admission October 05, 2024 7:31:[address] [address] Discharge November 04, 2024 3:59:00 AM [facility] DISCH ARGED TO HOME OR SELF CARE ENCOUNTER DIAGNOSES Notes information is not elvia ilable. Code System Diagnosis Onset Date Diagnosis information is not available. ABSTRACT DIAGNOSES Code System Diagnosis Updated By Z48.812 ICD10 ENCOUNTER FOR AMBROSE RGICAL AFTERCARE FOLLOWING SURGERY ON THE CIRCULATORY SYSTEM [id number] on November 06, 2024 10:33:10 AM [facility] I25.10 ICD10 ATHEROSCLEROTIC HEART DISEASE OF [place] CORONARY ARTERY WITHOUT ANGINA PECTORIS [id number] on November 06, 2024 10:33:10 AM [facility] Z95.1 ICD10 PRESENCE OF AORTOCORONARY BY PASS GRAFT [id number] on November 06, 2024 10:33:10 AM [facility] Z48.812 ICD10 ENCOUNTER FOR AMBROSE RGICAL AFTERCARE FOLLOWING SURGERY ON THE CIRCULATORY SYSTEM [id number] on November 06, 2024 10:33:10 AM [facility] I25.10 ICD10 ATHEROSCLEROTIC HEART DISEASE OF [place] CORONARY ARTERY WITHOUT ANGINA PECTORIS [id number] on November 06, 2024 10:33:10 AM [facility] Z95.1 ICD10 PRESENCE OF AORTOCORONARY BY PASS GRAFT [id number] on November 06, 2024 10:33:10 AM [facility] CARE TEAM Care Applied Psychology Chair Role MELANI BAE Primary Attending MELANI BAE Referring DEMETRIUS BAGLEY Primary Care MELANI BAE Admitting CARE TEAM CARE computer consultant Role on Team Status Start Date End Date Update d By KATHIA Montez Referring normal October 05 1:16:03 PM [facility] October 05, 2024 4:00:00 AM [facility] [id number] on October 05, 2024 1:16:03 PM [facility] KATHIA Montez Attending normal October 05 1:16:03 PM [facility] October 05, 2024 4:00:00 AM [facility] [id number] on October 05, 2024 1:16:03 PM [facility] KATHIA Montez Admitting normal October 05 1:16:03 PM [facility] October 05, 2024 4:00:00 AM [facility] [id number] on October 05, 2024 1:16:03 PM [facility] YUDI ROMO MD PHY PCP normal October 05 7:31:41 AM [facility] October 05, 2024 4:00:00 AM [facility] [id number] on October 05, 2024 1:16:03 PM [facility]
--- NOTE | 2024-11-17 11:15 | CA_ITS ---
APPROVED REPORT EXAM: Limited 2D Echocardiogram History Instructor: Blanca Posadas CRT Ht: 6 ft 0 in Wt: 201lbs BSA: 2.14 BP: 122/61 mmHg Indications: LV FUNCTTION EF CHECK M-Mode Dimensions RVDd 3.28 cm (0.9-2.6) LA Diam 4.34 cm (1.9-4.0) LVDd 5.25 cm (3.5-5.7) LVDs 4.75 cm (3.5-5.7) IVSd 1.58 cm (0.6-1.1) PWd 0.97 cm (0.6-1.1) EF (Teich) 20.80% FS 9.50% EDV (Teich) 132.40 mL ESV (Teich) 104.90 mL Other Information Study Quality: Fair Conclusion This is a limited TTE to evaluate for LV systolic function. Limited windows were obtained. The left ventricle is normal in size (LVEDVi = 73 ml/m2). There is increased LV wall thickness. There is mild global hypokinesis present. The septal and inferoseptal LV henderson are moderately hypokinetic. LVEF is 45%. Electronically signed by : Yadira Davis MD 11/17/2024 12:35:48
== END 2024-11-17 23:59 | disposition home or self-care (01) ==
LOC: RT 11:05
PROVIDERS: PCP Family Medicine; Visit Provider Internal Medicine
DX: I73.9 Peripheral vascular disease, unspecified (principal); R93.6 Abnormal findings on diagnostic imaging of limbs; I50.20 Unspecified systolic (congestive) heart failure; R93.1 Abnormal findings on diagnostic imaging of heart and coronary circulation
CPT/HCPCS: 93308

== ENCOUNTER 2024-11-22 09:04 | Outpatient (CLI) | payer MEDICARE, SELFPAY ==
[2024-11-22 09:56] LABS: Basophils % 0.4 % (0.1-2.0); Eosinophils # 0.2 Kmm3 (0.0-0.4); Eosinophils % 4.4 % (0.1-12.0); Hematocrit 38.7 % (42.0-52.0); Hemoglobin 12.7 g/dL (14.1-18.0); Immature Granulocytes # 0.01 10^3uL; Immature Granulocytes % 0.2 %; Lymphocytes # 0.6 K/mm3 (0.7-4.5); Lymphocytes % 13.1 % (10-50); Mean Corpuscular HGB Conc 32.8 g/dL (31.8-35.4); Mean Corpuscular Hemoglobin 28.9 pg (27.0-31.2); Mean Corpuscular Volume 88.2 fl (80-94); Mean Platelet Volume 10.5 fl (7.4-10.4); Monocytes # 0.5 K/mm3 (0.1-1.0); Monocytes % 9.8 % (1.7-9.3); Neutrophils # 3.5 K/mm3 (1.8-7.8); Neutrophils % 72.1 % (37.0-80.0); Nucleated Red Blood Cells # 0 10^3/uL; Nucleated Red Blood Cells % 0 %; Platelet Count 189 K/mm3 (142-424); Red Blood Count 4.39 M/mm3 (4.60-6.20); Red Cell Distribution Width 14.2 % (11.5-17.5); Red Cell Distribution Width-SD 45.6 fL; White Blood Count 4.8 K/mm3 (4.8-10.8)
[2024-11-22 10:18] LABS: Chloride 105 mmol/L (98-107)
[2024-11-22 10:19] LABS: Potassium 4.2 mmoL/L (3.5-5.1); Sodium 136 mmol/L (136-145)
[2024-11-22 10:21] LABS: Blood Urea Nitrogen 12 mg/dl (9-20); Estimated Glomerular Filt Rate 82 ml/min (>60); GFR (African American) 100 ML/MIN (>60)
[2024-11-22 10:22] LABS: Anion Gap 9.2 mEq/L (5-15); Calcium 8.8 mg/dl (8.4-10.2); Carbon Dioxide 26 mmol/L (22.0-30.0); Glucose 67 mg/dl (74-100)
== END 2024-11-22 23:59 | disposition home or self-care (01) ==
LOC: LAB 09:04
PROVIDERS: PCP Internal Medicine; Visit Provider Internal Medicine
DX: I11.0 Hypertensive heart disease with heart failure (principal); I50.20 Unspecified systolic (congestive) heart failure; I25.10 Atherosclerotic heart disease of native coronary artery without angina pectoris; Z87.891 Personal history of nicotine dependence
CPT/HCPCS: 36415; 80048; 85025

== ENCOUNTER 2025-03-31 11:43 | Outpatient (CLI) | payer MEDICARE, SELFPAY ==
--- NOTE | 2025-03-31 11:45 | XR_ITS ---
FINAL REPORT CLINICAL HISTORY: dyspnea cough cp COMPARISON: None FINDINGS: PA and lateral views of the chest are obtained. The patient has undergone a prior midline sternotomy. There is no prior exam for comparison. The cardiac and mediastinal silhouettes are within normal limits. The lungs are clear. There is no pleural effusion, pneumothorax, or acute osseous abnormality. IMPRESSION: No radiographic evidence of acute cardiac or pulmonary disease. Reviewed, Interpreted and Dictated by Natalie Noland MD Transcribed by Zahra Bey Authenticated and [facility]
--- OUTSIDE RECORDS SUMMARY | 2025-03-31 11:45 | XMS_ITS | Encounter Summary ---
Author Organization [facility] Address [address] [place] [address] Care Team Providers Care [place] Name Role Phone Roland Conley MD Primary Care Provider [phone] Tyler Argueta MD Unavailable [phone] Encounter Details Date Type Department Care Team (Late Contact Info) Description 12/31/2023 Orders Only External Location [address] [place] [id number] Paxton Davis MD [facility] [place] [address] Social History Tobacco Use Types Packs/Day Years Used Date Smoking Tobacco: Never Assessed Sex and Gender Information Value Date Recorded Sex Assigned at Not on file Legal Sex Male 2:25 PM EDT Gender Identity Not on file Sexual Orientation Not on file documented as of this encounter Plan of Treatment Upcoming Encounters Date Type Department Care Team (Late st Contact Info) Description 04/25/2025 2:00 PM EDT Office Visit [facility] Hartline Shankar [address] [facility] [place] [id number] Rufina Cline MD [address] [place] [address] documented as of this encounter Procedures Procedure Name Priority Date/Time Associated Diagnosis Comments US OUTSIDE IMAGES 12/31/2023 11:06 AM EDT documented in this encounter Results * US OUTSIDE IMAGES (12/31/2023 11:06 AM EDT) Anatomical Region Laterality Modality Ultrasound 12/31/2023 11:0 6 AM EDT us Paxton Davis MD IM US PROCEDURES Final Result documented in this encounter Visit Diagnoses Not on filedocumented in this encounter Care Teams [place] Relationship Specialty Start Date End Date Roland Conley MD [address] [place] [id number] PCP - General 04/12/24 Tyler Argueta MD [facility] [address] Referring Physician 04/12/24 documented as of this encounter
--- OUTSIDE RECORDS SUMMARY | 2025-03-31 11:45 | XMS_ITS | Referral Summary ---
Author Organization [facility] ([place], [place], [place], [place]) Address [address] [place] [address] Care Team Providers Care Automotive Generator Repairer Name Role Phone Unavailable Primary Care Provider Unavailabl e Allergies No known active allergies Medications rivaroxaban (XARELTO) 20 mg tablet Take 1 tablet (20 mg total) by mouth daily. Active bisoprolol (ZEBETA) 10 MG tablet Take 1 tablet (10 mg total) by mouth daily. Active aspirin 81 MG EC tablet Take 1 tablet (81 mg total) by mouth daily. Active Social History Tobacco Use Types Packs/Day Years Used Date Smoking Tobacco: Some Days Cigarettes Smokeless Tobacco: Never Tobacco Cessation:Ready to Q uit: Not Asked; Counseling Given: Not Answered Alcohol Use Standard Drinks/Week Comments Yes 0 (1 standard drink = 0.6 oz pur e alcohol) Food Insecurity Answer Date Recorded Food run out past 12 months Not on file 01/2024 Food did not last past 12 months Not on file 12/12/2023 Employment Answer Date Recorded Help finding and keeping a job Not on file 0 12/12/2023 Family and Community Support Answer Asher e Recorded Help with Day to Day Activities Not on file 12/12/2023 Feeling Lonely or Isolated Not on file 12/11 Educational Attainment Answer Date Len rded Speak language other than Hebrew at home Not on file 12/12/2023 Want help with school or training Not on file 12/12/2023 Substance Use Answer Date Recorded Used prescription meds for non-medical reasons N ot on file 12/12/2023 Used illegal drugs past 12 months Not on file 12/12/2023 Sex and Gender Information Value Date Recorded Sex Assigned at Not on file Legal Sex Male 12:48 PM CDT Gender Identity Not on file Sexual Orientation Not on file Last Filed Vital Signs Vital Sign Reading Time Taken Comments Blood Pressure 132/61 01/07/2024 2:37 PM EDT Pulse 72 01/07/2024 2:37 PM EDT Temperature 36.3 C (97.3 F) 01/07/2024 2:37 PM EDT Respiratory Rate 18 01/07/2024 2:37 PM EDT Oxygen Saturation 95% 01/07/2024 2:37 PM EDT Inhaled Oxygen Concentration - - Weight 89.8 kg (198 lb) 01/07/2024 2:37 PM EDT Height 182.9 cm (6') 01/07/2024 2:37 PM EDT Body Mass Index 26.85 01/07/2024 2:37 PM EDT Plan of Treatment Not on file Insurance [employer] MEDICARE COMPLETE MAP Member Subscriber Plan / Payer (Ef fective 2023-Present) Name:Terry Mercado Relation to Subscriber:Self Name:Terry Mercado Payer ID:[id number] Type:Not on file Address: [place] [id number] [facility] MEDICARE ADVANTAGE
--- OUTSIDE RECORDS SUMMARY | 2025-03-31 11:45 | XMS_ITS | Clinical Summary ---
Author Organization [facility] Address [address] [place] [address] Care Team Providers Care Hypoid Gear Tester Name Role Phone Rolnad Conley MD Primary Care Provider [phone] Tyler Argueta MD Unavailable [phone] Allergies No known active allergies Medications albuterol 108 (90 Base) MCG/ACT inhaler Inhale 2 puffs 4 (four) times a day if needed. Active hydroxychloroqu ine (Plaquenil) 200 MG tablet Take 1 tablet (200 mg) by mouth 2 (two) times a day. Active rivaroxaban (Xarelto) 20 MG tablet Take 1 tablet (20 mg) by mouth 1 (one) time each day with dinner. Take with food. Active nitroglycerin (Nitrostat) 0.[address] 1 tablet (0.4 mg) under the tongue every 5 (five) minutes if needed for chest pain. Active acetaminophen (Tylenol) 325 MG tablet Take 2 tablets (650 mg) by mouth every 6 (six) hours if needed for pain. Under [place] law, monthly prescriptions (30 days) can be refilled at 25 days and three-month prescriptions (90 days) at 80 days. Please contact the insurance company with questions if refills are denied. 100 tablet 4 Active naloxone (Narcan) 4 mg/0.1 mL nasal spray 1. Give 1 spray in nostril for no/slow breathing or cannot wake after opioid use 2. Call 911 3. Repeat in other nostril if symptoms continue 1 each 4 Active mometasone-form oterol (Dulera 200) 200-5 MCG/ACT inhaler Inhale 2 puffs 2 (two) times a day. Rinse mouth with water after use to reduce aftertaste and incidence of candidiasis. Do not swallow. 13 g 4 Active Tiotropium [place] Monohydrate (Spiriva Respimat) 2.5 MCG/ACT inhaler Inhale 2 puffs 1 (one) time each day. 4 g 4 Active atorvastatin (Lipitor) 80 MG tablet Take 1 tablet (80 mg) by mouth every night. 30 tablet 3 4 Active bisoprolol (Zebeta) 5 MG tablet Take 1 tablet (5 mg) by mouth 1 (one) time each day. 30 tablet 3 4 Active dapagliflozin (Farxiga) 10 MG tablet Take 1 tablet (10 mg) by mouth 1 (one) time each day. 30 tablet 4 Active furosemide (Lasix) 20 MG tablet Take 1 tablet (20 mg) by mouth 1 (one) time each day if needed (shortness of air, weight gain). 30 tablet 2 4 Active methocarbamol (Robaxin) 750 MG tablet Take 1 tablet (750 mg) by mouth 4 (four) times a day for 10 days. 40 tablet 4 Active Active Problems Problem Noted Date Diagnosed Date Prediabetes 05/12/2024 Overview (05/12/2024): On Farxiga at home - not requiring SSI Hypoalbuminemia 05/12/2024 Coronary artery disease invo lving stillaguamish coronary artery of stillaguamish heart with angina pectoris 05/10/2024 Overview (05/11/2024): 05/10 4vCABG with Tarun S/P CABG x 4 05/10/2024 Overview (05/13/2024): S/P 4v CABG w/ Dr. Mcneil on 05/10 Posterior RCA, obtuse MCA, first diagonal and LAD. BHARATI as inflow - arrived to unit intubated and sedated. Extubated 05/10 - off pressors 05/11 - Continue BB, ASA, statin as appropriate - Maintain SBP < 140 - Diurese as needed - Insulin gtt dc'd 05/[address] Mcneil - CT output minimal, CVTS to remove today Former cigarette smoker 05/10/2024 Overview (05/10/2024): Smoked 1-1.5 ppd for 50 years. Quit in 2019. Poor dentition 05/10/2024 Lupus (systemic lupus erythematosus) 05/10/202401/2024 Overview (05/12/2024): - continue Hydroxychloroquine HFrEF (heart failure with reduced ejection fract ion) 05/10/2024 Overview (05/10/2024): EF 45% Cardiac volume overload 05/10/2024 Overview (05/11/2024): On home Lasix 20 PO daily - Diurese as needed - daily CXR Acute postoperative anemia due to expected blood loss 05/10/2024 Overview (05/13/2024): Hemoglobin normal at baseline HGB Date Value Ref Range Status 05/13/2024 9.4 (L) 13.7 - 17.5 g/dL Final 05/12/2024 9.7 (L) 13.7 - 17.5 g/dL Final - Continue to monitor, Transfuse for Hgb < 8 Abnormal findings on diagnos tic imaging of heart and coronary circulation 04/15/2024 Paroxysmal atrial fibrillation 04/15/2024 Overview (05/13/2024): On Xarelto at home for a/c. Bisoprolol 10 daily. - Will avoid Amio and focus on rate control given LA thrombus - Monitor lytes, goal K > 4 and Mg > 2 Chronic low back pain 04/15/2024 Essential hypertension 04/15/2024 Overview (05/10/2024): Continue home meds as appropriate History of coronary angioplasty with insertion o f stent 04/15/2024 Intermittent claudication 04/15/2024 Overweight (BMI 25.0-29.9) 04/15/2024 Overview (05/10/2024): Complicates all aspects of care and recovery COPD (chronic obstructive pulmonary disease) 04/2024 Overview (05/12/2024): Significant past smoking history Only on home Albuterol MDI PRN - Duonebs scheduled and PRN HLD (hyperlipidemia) 04/14/2024 Overview (05/12/2024): Not on statin therapy at home - continue statin CAD (coronary artery disease) 04/14/2024 Overview (05/10/2024): Left main 40-50% stenosis Proximal LAD 70% stenosis D1 70-80% stenosis LCX proximal 50-70% stenosis RCA 50-60% mid vessel stenosis, Proximal PDA 80-90% stenosis Rotator cuff syndrome of left shoulder 7 Tear of left rotator cuff 03/01/2015 Overview (01/17/2025): IMO 04/06 Updates Peripheral neuropathy 07/21/2013 Resolved Problems Problem Noted Date Diagnosed Date Resolved Date Thrombocytopenia 05/13/2024 05/18/2024 Overview (05/13/2024): Platelet Count Date Value Ref Range Status 05/13/2024 88 (L) 155 - 369 10*3/uL Final - will continue to monitor Electrolyte imbalance 05/12/20242023 Overview (05/12/2024): - continue to monitor and replete as needed Post-op pain 05/10/2024 03/27/2025 Overview (05/10/2024): MMPC Abnormal ankle brachial index (HANNA) 04/15/2024 03/27/2025 Immunizations Immunization Administration Dates Next Due Pneumococcal Conjugate PCV 13 05/03/2015 Pneumococcal Polysaccharide PPV23 05/20/2016 Tdap 10/26/2009 Family History Medical History Relation Name Comments Diabetes Father Heart attack Father Stroke Father Cancer Mother Diabetes type II Sister Anesthesia problems Neg Hx Malig Hyperthermia Neg Hx Relation Name Status Comments Father Mother Sister Social History Tobacco Use Types Packs/Day Years Used Date Smoking Tobacco: Former Cigarettes 1 50 S tarted: 1970 Smokeless Tobacco: Never Tobacco Cessation:Counseling Given: Not Answered Alcohol Use Standard Drinks/Week Comments Yes 1 (1 standard drink = 0.6 oz pur e alcohol) 1 beer/day Humiliation, Afraid, Rape, and Kick questionnair e Answer Date Recorded Within the last year, have y ou been afraid of your partner or ex-partner? No 05/11/2024 Within the last year, have y ou been humiliated or emotionally abused in other ways by your partner or ex-partner? No Within the last year, have y ou been kicked, hit, slapped, or otherwise physically hurt by your partner or ex-partner? No 05/11/2024 Within the last year, have y ou been raped or forced to have any kind of sexual activity by your partner or ex-partner? No 05/11/2024 Social Connection and Isolation Panel Answer Date Recorded In a typical week, how many times do you talk on the phone with family, friends, or neighbors? More than three times a week 05/11/2024 How often do you get togethe r with friends or relatives? More than three times a week 05/11/2024 How often do you attend chur ch or congregation services? Never 05/11/2024 Do you belong to any clubs o r organizations such as baptism groups, unions, fraternal or athletic groups, or school groups? Yes 05/11/2024 How often do you attend meet ings of the clubs or organizations you belong to? More than 4 times per year 05/11/2024 Are you , , di vorced, , never , or living with a partner? 05/11/2024 AUDIT-C Answer Date Recorded Q1: How often do you have a drink containing alcohol? 4 or more times a week 05/11/2024 Q2: How many drinks containi ng alcohol do you have on a typical day when you are drinking? 1 or 2 Q3: How often do you have si x or more drinks on one occasion? Less than monthly 05/11/2024 [facility] - Occupational Stress Questionnaire Answer Date Recorded Do you feel stress - tense, restless, nervous, or anxious, or unable to sleep at night because your mind is troubled all the time - these days? To some extent 05/11/2024 Exercise Vital Sign Answer Date Recorde d On average, how many days pe r week do you engage in moderate to strenuous exercise (like a brisk walk)? 5 days 05/11/2024 On average, how many minutes do you engage in exercise at this level? 60 min 05/11/2024 Hunger Vital Sign Answer Date Recorded Within the past 12 months, y ou worried that your food would run out before you got the money to buy more. Never true 05/11/20 24 Within the past 12 months, t he food you bought just didn't last and you didn't have money to get more. Never true 05/11/2024 PRAPARE - Transportation Answer Date Re corded In the past 12 months, has l ack of transportation kept you from medical appointments or from getting medications? No 11/2023 In the past 12 months, has l ack of transportation kept you from meetings, work, or from getting things needed for daily living? No 05/11/2024 Housing Stability Vital Sign Answer Asher e Recorded In the last 12 months, was t here a time when you were not able to pay the mortgage or rent on time? No 05/11/2024 In the last 12 months, how many places have you lived? 1 05/11/2024 In the last 12 months, was t here a time when you did not have a steady place to sleep or slept in a usp (including now)? No 05/11/2024 Utilities Answer Date Recorded In the past 12 months has th e [employer], gas, oil, or water company threatened to shut off services in your home? No 05/11/2024 Sex and Gender Information Value Date Recorded Sex Assigned at Not on file Legal Sex Male 2:25 PM EDT Gender Identity Not on file Sexual Orientation Not on file Last Filed Vital Signs Vital Sign Reading Time Taken Comments Blood Pressure 139/84 06/10/2024 11:17 AM EST Pulse 93 06/10/2024 11:17 AM EST Temperature 36.5 C (97.7 F) 05/18/2024 10:50 AM EST Respiratory Rate 28 05/18/2024 10:50 AM EST Oxygen Saturation 97% 06/10/2024 11:17 AM EST Inhaled Oxygen Concentration - - Weight 89.9 kg (198 lb 4.9 oz) 06/10/2024 11:17 AM EST Height 182.9 cm (6') 06/10/2024 11:17 AM EST Body Mass Index 26.89 06/10/2024 11:17 AM EST Plan of Treatment Upcoming Encounters Date Type Department Care Team (Late st Contact Info) Description 04/25/2025 2:00 PM EDT Office Visit [facility] [address] [place] [address] Rufina Cline MD [address] [place] [address] Health Maintenance Due Date Last Done Comments [facility]-Depression Screening 1950 [facility]-Hepatitis C Screening 1950 [facility]-Infant/Child/Adol SDOH Screenings 1950 CT Colonography 1995 Colonoscopy 1995 FIT-DNA 1995 FIT 1995 FOBT 1995 Sigmoidoscopy 1995 [facility]-Colorectal Cancer Screening 1995 [facility]-Zoster Vaccines (1 of 2) 02/27/2000 [facility]-DTaP,Tdap,and Td Vaccine s (2 - Td or Tdap) 10/27/2019 10/26/2009 [facility]-Medicare Annual Wellness (AWV) 01/30/2020 01/29/2019, 12/12/2017, 11/25/2016 [facility]- SDOH Screenings 11/08/2024 [facility]-Adult SDOH Screenings 11/08/2024 05/11/2024 [facility]-RSV Vaccine: 60+ Years o r (1 - 1-dose 75+ series) 2025 [id number] Vaccine ( - 2023- season) 2025 [facility]-Influenza Vaccine (#1) 2025 [facility]-Diabetes: Hemoglobin A1C 04/15/2025 04/15/2024 [facility]-Pneumococcal Vaccine: 50 + Years Completed 05/20/2016, 05/03/2015 [facility]-Abdominal Aortic Aneurys m (AAA) Screening Completed 03/03/2017, 03/03/2017 [facility]-Obesity Intervention Completed 024, 04/15/2024, 04/15/2024 HPV Vaccines Aged Out No longer eligi ble based on patient's age to complete this topic [facility]-HIB Vaccines Aged Out No longer e ligible based on patient's age to complete this topic [facility]-Hepatitis A Vaccines Aged Out No longer eligible based on patient's age to complete this topic [facility]-IPV Vaccines Aged Out No longer e ligible based on patient's age to complete this topic [facility]-Rotavirus Vaccines Aged Out No lo nger eligible based on patient's age to complete this topic Procedures Procedure Name Priority Date/Time Associated Diagnosis Comments HEMOGLOBIN A1C Routine 04/15/2024 12:15 PM EDT Coronary artery disease involving stillaguamish coronary artery of stillaguamish heart without angina pectoris from Last 3 Months or Most Recently Relevant to Health Maintenance Results * Hemoglobin A1c (04/15/2024 12:15 PM EDT) Hemoglobin A1c 5.5 <5.7 % 04/15/2024 8:11 PM EDT [facility] Blood Venous blood specimen / Unknown Venipuncture / Unknown 04/15/2024 12:15 PM EDT 04/15/2024 12:16 PM EDT Narrative [facility] - 04/15/2024 8:11 PM EDT HA1C Interpretive Data: Diagnosis of Diabetes: Diabetic > or = 6.5% Pre-diabetic 5.7 to 6.4% Non-diabetic < or = 5.6% Glycemic Targets for Type I and Type II Diabetics: Non- Adults <7.0% Adults <6.0% Children and Adolescents <7.5% Source: [place] [employer]. Standards of medical care in diabetes,2017. Diabetes Care.2017:40 (suppl 1):S1-S135. HbA1c assay performed by an ion-exchange chromatography method that is certified traceable to the DCCT. Jamar Mcneil MD LAB BLOOD ORDERABLES Final R esult [facility] [address] [place] [address] from Last 3 Months or Most Recently Relevant to Health Maintenance Insurance Advance Directives * Full Code (Latest Code Status on File) Date Activated Date Inactivated Comments 05/10/2024 2:20 PM 05/18/2024 5:58 PM Question Answer Comments Patient has decision-making capacity? Yes Care Teams Hypoid Gear Tester Relationship Specialty Start Date End Date Roland Conley MD [address] [place] [address] PCP - General 04/12/24 Tyler Argueta MD [facility] [address] [address] Referring Physician 04/12/24
--- OUTSIDE RECORDS SUMMARY | 2025-03-31 11:45 | XMS_ITS | Clinical Summary ---
Author Organization [employer] ([place], [place], [place], [place]) Address [address] [place] [address] Care Team Providers Care Sharepoint Admin Name Role Phone Unavailable Primary Care Provider Unavailabl e Allergies No known active allergies Medications rivaroxaban (XARELTO) 20 mg tablet Take 1 tablet (20 mg total) by mouth daily. Active bisoprolol (ZEBETA) 10 MG tablet Take 1 tablet (10 mg total) by mouth daily. Active aspirin 81 MG EC tablet Take 1 tablet (81 mg total) by mouth daily. Active Family History Medical History Relation Name Comments High blood pressure Brother Parkinsonism Father Squamous cell carcinoma Mother Diabetes Sister Relation Name Status Comments Brother Father Mother Sister Social History Tobacco Use [...] Date Len rded Speak language other than Khmer at home Not on file 12/12/2023 Want [...] 01/07/2024 2:37 PM EDT Plan of Treatment Health Maintenance Due Date Last Done Comments CT Colonography 1950 Colonoscopy 1950 Colorectal Cancer Screening 1950 FOBT/FIT 1950 Fit-DNA (Cologuard) 1950 Sigmoidoscopy 1950 Depression Screening (12+) 1962 Hepatitis C Screening 02/27/1968 Shingles Vaccine (Zoster) (1 of 2) 02/27/2000 Medicare Initial AWV [id number] 04/07/2017 DTAP/TDAP/TD VACCINES (2 - T d or Tdap) 10/27/2019 10/26/2009 Falls Risk Screening 07/07/2024 Tobacco Cessation Counseling and Screening (12+) 01/06/2025 01/07/2024 Respiratory Syncytial Virus (RSV) Adult or (1 - 1-dose 75+ series) 2025 COVID-19 VACCINE ( - 2023- season) 2025 Influenza Vaccine (#1) 2025 6, 05/03/2015, 04/27/2014 Pneumococcal 50+ years Completed 05/20/2016, 2014 [place] [id number] [facility] MEDICARE COMPLETE MAP Member Subscriber Plan / Payer (Ef fective 2023-Present) Name:Terry Mercado Relation to Subscriber:Self Name:Terry Mercado Payer ID:[id number] Type:Not on file Address: [place] [id number] [facility] MEDICARE ADVANTAGE Member Subscriber Plan / Payer (Ef fective 2023-Present) Name:Terry Mercado Relation to Subscriber:Self Name:Terry Mercado Payer ID:[id number] Type:Not on file Address: [place] [phone]
--- OUTSIDE RECORDS SUMMARY | 2025-03-31 11:45 | XMS_ITS | Encounter Summary ---
Author Organization [facility] Address [address] [place] [address] Care Team Providers Care Tour Narrator Name Role Phone Roland Conley MD Primary Care Provider [phone] Tyler Argueta MD Unavailable [phone] Encounter Details Date Type Department Care Team (Late Contact Info) Description 12/31/2023 Orders Only External Location [address] [place] [phone] Paxton Davis MD [facility] [place] [address] Social History Tobacco Use Types Packs/Day Years [...] Description 04/25/2025 2:00 PM EDT Office Visit [facility] [address] [facility] [place] [id number] Rufina Cline MD [address] [place] [address] documented as of this encounter Procedures Procedure Name Priority Date/Time Associated Diagnosis Comments NM OUTSIDE IMAGES 12/31/2023 1:28 PM EDT documented in this encounter Results * NM OUTSIDE IMAGES (12/31/2023 1:28 PM EDT) Anatomical Region Laterality Modality Nuclear Medicine 12/31/2023 1:28 PM EDT Paxton Davis MD IMG NM PROCEDURES Final Result documented in this encounter Visit Diagnoses Not on filedocumented in this encounter Care Teams Tour Narrator Relationship Specialty Start Date End Date Roland Conley MD [address] [place] [address] PCP - General 04/12/24 Tyler Argueta MD [facility] [address] Referring Physician 04/12/24 documented as of this encounter
== END 2025-03-31 23:59 | disposition home or self-care (01) ==
LOC: RAD 11:43
PROVIDERS: PCP Family Medicine; Visit Provider Nurse Practitioner Family
DX: R06.09 Other forms of dyspnea (principal)
CPT/HCPCS: 71046

== ENCOUNTER 2025-05-17 09:48 | Day surgery (SDC) | payer MEDICARE, SELFPAY ==
[2025-05-17 10:27] VITALS: BMI 26.8
[2025-05-17 10:40] VITALS: BP 131/77; PULSE 77; RESP 18; TEMP 36.2; O2SAT 98
--- NOTE | 2025-05-17 10:55 | ECG_ITS ---
APPROVED REPORT Exam: Resting ECG HR:77 bpm ECG Measurements Heart Rate 77 AXES QRSd 108 QRS 78 QT 398 T 29 QTc 430 Conclusion ATRIAL FIBRILLATION POSSIBLE INFERIOR MYOCARDIAL INFARCTION , PROBABLY OLD [30 ms Q WAVE IN II/aVF] ABNORMAL RHYTHM ECG UNCONFIRMED REPORT Electronically signed by : Herb Navarro MD 05/18/2025 07:54:34
[2025-05-17 10:57] LABS: POC Glucose,Bedside 94 gm/dL (70-110)
[2025-05-17 10:58] LABS: Hematocrit 38.3 % (42.0-52.0); Hemoglobin 12.9 g/dL (14.1-18.0); Immature Granulocytes % 0.2 %; Mean Corpuscular HGB Conc 33.7 g/dL (31.8-35.4); Mean Corpuscular Hemoglobin 30.8 pg (27.0-31.2); Mean Corpuscular Volume 91.4 fl (80-94); Nucleated Red Blood Cells % 0 %; Platelet Count 156 K/mm3 (142-424); Red Blood Count 4.19 M/mm3 (4.60-6.20); Red Cell Distribution Width-SD 46.9 fL; White Blood Count 5.2 K/mm3 (4.8-10.8)
--- NOTE | 2025-05-17 11:00 | CA_ITS ---
APPROVED REPORT EXAM: Comprehensive 2D, Doppler, and color-flow Echocardiogram Resistor Winder: Alejandra Mcgregor RT(R) Ht: 6 ft 0 in Wt: 197lbs BSA: 2.12 BP: 120/56 mmHg Indications: AFIB, hx CABG Echo Enhancing Agent Indication: Endocardial border delineation Agent(s) / Amount(s) Used: Definity 2 cc Procedure After obtaining informed consent, patient underwent transesophageal echo in the [facility]. Type of Sedation : MAC Sedation start time: 12:05 Case end Time: 12:20 Transesophageal probe was inserted and advanced into esophagus without difficulty by Dr. Paxton Davis. The RERE was performed without complications. Complication encountered: transient hypoxia Synchronized Cardioversion acheived with 200 Joules after 3 attempt(s). Rhythm following Synchronized Cardioversion: Normal Sinus Rhythm Throughout the procedure, the blood pressure, pulse oximetry, cardiac rhythm, and rate were monitored. The patient tolerated the procedure without adverse effects. Recovery from conscious sedation was uneventful and vital signs were stable. Left Ventricle The left ventricle is normal size. Left ventricular systolic function is mildly reduced. There is increased left ventricular wall thickness. There is normal LV segmental wall motion. LVEF is 45% Right Ventricle The right ventricle is normal size. The right ventricular systolic function is normal. Atria The left atrium size is mildly dilated. No thrombus is visualized in the left atrium or appendage. The right atrium size is mildly dilated. Interatrial septum is intact without evidence of ASD or PFO. Aortic Valve The aortic valve is mildly thickened. There is no hemodynamically significant aortic valvular stenosis. Trace aortic regurgitation is present. Mitral Valve The mitral valve is normal in structure. No evidence of mitral valve stenosis. Mild mitral regurgitation is present. Tricuspid Valve The tricuspid valve leaflets are thin and pliable. Trace tricuspid regurgitation. There is insufficient TR jet to estimate RVSP. Pulmonic Valve The pulmonary valve is grossly normal in structure. Trace pulmonic valve regurgitation is present. Great Vessels The aortic root is normal in size. The ascending aorta is normal in size. Pericardium There is no pericardial effusion. Other Information Study Quality: Fair Conclusion Mildly reduced LV systolic function (LVEF 45%). Mild biatrial dilation. Mild MR. No evidence of LA or TOSHA thrombus. Once RERE demonstrated no evidence of LA or TOSHA thrombus, he underwent DCCV, after which his rhythm successfully converted from atrial fibrillation to normal sinus rhythm after the 3rd attempt (150J then 200J then 200J). Of note, towards the end of the RERE, the patient had transient hypoxia which recovered successfully and without complications after discontinuation of the RERE probe and supportive care. Electronically signed by : Yadira Davis MD 05/29/2025 23:07:22
[2025-05-17 11:02] LABS: Anion Gap 10.3 mEq/L (5-15); Blood Urea Nitrogen 16 mg/dl (9-20); Calcium 9.1 mg/dl (8.4-10.2); Carbon Dioxide 26 mmol/L (22.0-30.0); Chloride 105 mmol/L (98-107); Creatinine Clearance Estimated 74 mL/min (50-200); Creatinine,Serum 1.10 mg/dl (0.66-1.25); Estimated Glomerular Filt Rate 65 ml/min (>60); GFR (African American) 79 ML/MIN (>60); Glucose 103 mg/dl (74-100); Potassium 4.3 mmoL/L (3.5-5.1); Sodium 137 mmol/L (136-145)
[2025-05-17 11:04] LABS: INR 1.06 (0.9-1.1); Prothrombin Time 11.7 seconds (10.1-12.5)
--- NOTE | 2025-05-17 11:14 | EXP.ANES.CKL ---
[facility] Disclaimer: The information contained in this section may have been updated after the patient was seen, as this information can be updated by other users. Medical History Angina pectoris Sinus bradycardia Intermittent claudication Hyperlipidemia Atrial fibrillation with RVR PAF (paroxysmal atrial fibrillation) CAD (coronary artery disease) HFrEF (heart failure with reduced ejection fraction) Peripheral artery disease Claudication Abnormal computed tomography of lower extremity Typical angina Abnormal ankle brachial index (HANNA) Abnormal findings on diagnostic imaging of heart and coronary circulation COPD (chronic obstructive pulmonary disease) History of heart attack Hypertension Surgical History S/P CABG x 4 Family History Other Brain cancer Family history of COPD (chronic obstructive pulmonary disease) Family history of cancer Family history of hyperlipidemia Family history of hypertension Family history of myocardial infarction Social History Smoking Status: Former smoker alcohol intake: never substance use type: denies use current occupational status: retired Travel in the last 8 weeks?: None caffeine: No [facility] Anesthesia Checklist Patient Identification Patient Identification: Verbal (Name & ) Structural Data Admitted From: Home Planned Operative Procedure/s: isaura,cardio Consent for Planned Operative Procedure(s) Verified: Yes NPO Status Verified Time NPO: 00:00 Airway Assessment Mallampati Score:: Class II C-Spine Mobility Assessed: Yes TMJ Mobility Assessed: Yes Dentition: Poor Dentition Neurological Assessment Level of Consciousness: Awake, Alert and Appropriate Anesthesia Plan Anesthesia Risk discussed: Yes Anesthesia Plan: Verified ASA Class: III Anesthesia Type: MAC
[2025-05-17 12:15] VITALS: BP 113/56; PULSE 51; RESP 18; TEMP 36.1; O2SAT 98
[2025-05-17] MEDS: DEFINITY US ECHO CONTRAST 2ML INJ 2 MG IV (12:20)
[2025-05-17 12:25] VITALS: BP 94/56; PULSE 56; RESP 18; TEMP 36.1; O2SAT 97
[2025-05-17 12:35] VITALS: BP 108/53; PULSE 53; RESP 18; TEMP 36.1; O2SAT 99
[2025-05-17 12:45] VITALS: BP 110/77; PULSE 56; RESP 18; TEMP 36.6; O2SAT 98
== END 2025-05-17 12:50 | disposition home or self-care (01) ==
PROVIDERS: PCP Family Medicine; Visit Provider Internal Medicine
PROC: (CPT 93312; principal; 2025-05-17 11:45)
DX: I48.0 Paroxysmal atrial fibrillation (principal); R93.1 Abnormal findings on diagnostic imaging of heart and coronary circulation; I25.118 Atherosclerotic heart disease of native coronary artery with other forms of angina pectoris; I11.0 Hypertensive heart disease with heart failure; I50.20 Unspecified systolic (congestive) heart failure; E78.5 Hyperlipidemia, unspecified; I70.219 Atherosclerosis of native arteries of extremities with intermittent claudication, unspecified extremity; J44.9 Chronic obstructive pulmonary disease, unspecified; I25.2 Old myocardial infarction; Z95.1 Presence of aortocoronary bypass graft; Z87.891 Personal history of nicotine dependence; Z79.84 Long term (current) use of oral hypoglycemic drugs; Z79.01 Long term (current) use of anticoagulants; Z79.02 Long term (current) use of antithrombotics/antiplatelets; Z79.899 Other long term (current) drug therapy; Z95.5 Presence of coronary angioplasty implant and graft; Z88.4 Allergy status to anesthetic agent; Z82.49 Family history of ischemic heart disease and other diseases of the circulatory system
CPT/HCPCS: 80048; 82962; 85025; 85610; 93005; 93270; 93312; 93319; J2003; J2704; Q9957